=== PATIENT | male | born 1955 | race Caucasian/White ===

== ENCOUNTER 2016-07-12 16:34 | Emergency (ER) | payer OTHER ==
[~2016-07-12] VITALS: Ht 180.3 cm; Wt 102.1 kg
[~2016-07-12 16:34] MED LIST: ACCUNEB SO1.25 MG/1 INH; ACETAMINOPHEN650 M5 PO; ADVAIR 250-501 EACH INH; ADVAIR HFA115 MCG/21 INH; ALEVE220 MG PO; ALLOPURINOL 30300 M1 PO; ATENOLOL 50MG T50 M1 PO; AUGMENTIN 875875 MG PO; BACTRIM DS TAB1 EACH PO; BENADRYL25 MG PO; BUPROPION HCL150 M1 PO; CIPRO500 MG PO; CONSTULOSE10 GM/15 M PO; DIABETA 5MG TABL5 MG PO; DUONEB 2.5-0.5 M3 ML INH; ENDOCET 10-3251 EACH PO; ENOXAPARIN40 MG/0.4 SUBQ; ENULOSE10 GM/15 M PO; IBUPROFEN 400400 M2 PO; KEFLEX500 MG PO; LACTINEX CHEWA1 EACH PO; LACTULOSE20 GM/30 M PO; LEVAQUIN 500 M500 M2 PO; LOVENOX SUBQ; METHADONE HCL 110 M1 PO; METHADONE HCL5 MG PO; METHADONE PO; METHADOSE10 MG/1 ML PO; MIRALAX255 GM PO; NICOTINE PATCH1 EAC2 TD; NICOTINE TRANSD21 M1 TRANSDERM; NORCO 5-325 TA1 EACH PO; PERCOCET 10-321 EACH PO; PREDNISONE 10 M10 MG PO; PREFILLED SUBQ; SULFACETAMIDE OPHTHALMIC; TRAMADOL 50 MG50 MG PO; TRAZODONE 150150 M1 PO; TRAZODONE HCL50 MG PO; ULTRAM 50MG TAB50 MG PO; VALIUM5 MG PO; VENTOLIN HFA 1818 GM INH; XIFAXAN550 M1 PO; [UNRECOGNIZED DRUG - OTHER] SUBQ
== END 2016-07-12 18:22 | disposition home or self-care (01) ==
LOC: ER 16:34
DX: S82.62XA Displaced fracture of lateral malleolus of left fibula, initial encounter for closed fracture (principal); M19.90 Unspecified osteoarthritis, unspecified site; F41.9 Anxiety disorder, unspecified; K74.60 Unspecified cirrhosis of liver; J44.9 Chronic obstructive pulmonary disease, unspecified; I50.9 Heart failure, unspecified; F17.210 Nicotine dependence, cigarettes, uncomplicated; F19.21 Other psychoactive substance dependence, in remission; W23.0XXA Caught, crushed, jammed, or pinched between moving objects, initial encounter; Y93.89 Activity, other specified; Y92.89 Other specified places as the place of occurrence of the external cause; Y99.9 Unspecified external cause status

== ENCOUNTER 2016-11-30 20:21 | Emergency (ER) | payer OTHER ==
[~2016-11-30] VITALS: Ht 180.3 cm; Wt 113.4 kg
[2016-11-30 22:22] LABS: BASOPHILS 0.7 % (0.0-2.0); EOSINOPHILS 2.1 % (0.0-3.0); HEMATOCRIT 41.8 % (42.0-52.0); HEMOGLOBIN 14.5 gm/dL (14.0-18.0); LYMPHOCYTES 36.2 % (24.0-44.0); MCH 35.1 pg (26.0-34.0); MCHC 34.8 g/dL (28.0-37.0); MONOCYTES 7.6 % (1.0-8.0); PLATELET COUNT 80 thou/uL (150-400); POLYS 53.4 % (36.0-66.0); RBC 4.14 mil/uL (4.50-6.00); RDW 14.7 % (10.5-14.5); WBC 5.6 thou/uL (4.0-11.0)
[2016-11-30 22:35] LABS: CALCIUM 8.8 mg/dL (8.5-10.1); CREATININE 0.7 mg/dL (0.7-1.3); POTASSIUM 3.4 mmol/L (3.5-5.1)
[2016-11-30 22:38] LABS: MANUAL DIFF NO
[2016-11-30 22:41] LABS: ALBUMIN 2.9 g/dL (3.4-5.0); DIRECT BILIRUBIN 0.5 mg/dL (<0.1-0.3); TOTAL BILIRUBIN 1.6 mg/dL (<0.1-1.0); TOTAL PROTEIN 7.6 g/dL (6.4-8.2)
[2016-11-30] MEDS ORDERED: ZOFRAN ODT4 MG PO (23:13)
[2016-11-30] MEDS ORDERED: NAPROSYN500 MG PO (23:13)
[2016-11-30 23:52] LABS: PLATELET ESTIMATE DECREASED
== END 2016-11-30 23:53 | disposition home or self-care (01) ==
LOC: ER 20:21
PROVIDERS: Emergency Medicine
DX: R07.9 Chest pain, unspecified (principal); R10.9 Unspecified abdominal pain; F11.20 Opioid dependence, uncomplicated; M10.9 Gout, unspecified; M19.90 Unspecified osteoarthritis, unspecified site; F41.9 Anxiety disorder, unspecified; J44.9 Chronic obstructive pulmonary disease, unspecified; I50.9 Heart failure, unspecified; K74.60 Unspecified cirrhosis of liver; F17.210 Nicotine dependence, cigarettes, uncomplicated; Z86.19 Personal history of other infectious and parasitic diseases

== ENCOUNTER 2017-03-19 15:42 | Emergency (ER) | payer OTHER ==
[~2017-03-19] VITALS: Ht 172.7 cm; Wt 97.5 kg
--- NOTE | ~2017-03-19 | EKG ---
[address] [address] ELECTROCARDIOGRAM REPORT Name: ELANA LONDONWAYNE [id number] Admission: 03/19/17 Attend Phys: Discharge: Date of : 51 Report #: [id number] THIS REPORT FOR: //name// [facility] ED Test Date: 2017-03-19 Test Time: 16:01:43 Pat Name: ELANA LONDON Department: Room: Gender: M Cable Armorer Operator: [id number] : 1955 Requested By: Joe Jimenez Order Number: [id number] MD: Alex Caballero Measurements Intervals [place] Rate: 77 P: -11 MS: 167 QRS: 2 QRSD: 111 T: 32 QT: 468 QTc: 530 Interpretive Statements Sinus rhythm Compared to ECG 11/03/2015 03:36:21 No significant changes Electronically Signed On 03-19-2017 16:52:33 JEWELRY BEARING MAKER by Alex Caballero [email or web address] <ELECTRONICALLY SIGNED> By: Alex Caballero MD 03/19/17 1652 1601 1601 MD JENNIFER Mariee
[~2017-03-19 15:42] MED LIST changes: +NAPROSYN500 MG PO; +ZOFRAN ODT4 MG PO
[2017-03-19 16:37] LABS: HEMATOCRIT 37.4 % (42.0-52.0); HEMOGLOBIN 12.5 gm/dL (14.0-18.0); MCH 34.5 pg (26.0-34.0); MCHC 33.5 g/dL (28.0-37.0); MCV 102.8 fL (80.0-100.0); RBC 3.64 mil/uL (4.50-6.00); RDW 14.9 % (10.5-14.5); WBC 2.3 thou/uL (4.0-11.0)
[2017-03-19 16:45] LABS: ANION GAP 7 mmol/L (7-16); BUN 13 mg/dL (7-18); CALCIUM 8.1 mg/dL (8.5-10.1); CHLORIDE 102 mmol/L (98-107); CO2 27 mmol/L (21-32); CREATININE 0.7 mg/dL (0.7-1.3); GLUCOSE 170 mg/dL (74-106); POTASSIUM 3.4 mmol/L (3.5-5.1); SODIUM 136 mmol/L (136-145)
[2017-03-19 16:53] LABS: TROPONIN-I < 0.04 ng/mL (<0.06)
[2017-03-19] MEDS ORDERED: ZPAK PO (18:19)
== END 2017-03-19 18:32 | disposition home or self-care (01) ==
LOC: ER 15:42
PROVIDERS: Emergency Medicine
DX: R06.02 Shortness of breath (principal); R05 Cough; M79.1 Myalgia; F41.9 Anxiety disorder, unspecified; J44.9 Chronic obstructive pulmonary disease, unspecified; I50.9 Heart failure, unspecified; K74.60 Unspecified cirrhosis of liver; M10.9 Gout, unspecified; F17.210 Nicotine dependence, cigarettes, uncomplicated

== ENCOUNTER 2017-05-09 15:36 | Emergency (ER) | payer OTHER ==
[~2017-05-09] VITALS: Ht 177.8 cm; Wt 113.4 kg
[~2017-05-09 15:36] MED LIST changes: +ZPAK PO
[2017-05-09] MEDS ORDERED: KEFLEX500 M1 PO (16:49)
[2017-05-09] MEDS ORDERED: BACITRACIN28.4 G1 TOP (16:49)
[2017-05-09 16:51] VITALS: BP 107/68
[2017-08-17] MEDS ORDERED: HYDROCODONE-AP1 EAC6 PO (19:19)
[2017-08-17] MEDS ORDERED: MOBIC7.5 MG PO (19:19)
[2017-08-17] MEDS ORDERED: TRAZODONE 150150 M1 PO (19:53)
== END 2017-05-09 16:55 | disposition home or self-care (01) ==
LOC: ER 15:36
DX: T20.09XA Burn of unspecified degree of multiple sites of head, face, and neck, initial encounter (principal); J44.9 Chronic obstructive pulmonary disease, unspecified; I50.9 Heart failure, unspecified; F41.9 Anxiety disorder, unspecified; M19.90 Unspecified osteoarthritis, unspecified site; M10.9 Gout, unspecified; K74.60 Unspecified cirrhosis of liver; F17.210 Nicotine dependence, cigarettes, uncomplicated; X08.8XXA Exposure to other specified smoke, fire and flames, initial encounter; Y93.89 Activity, other specified; Y92.89 Other specified places as the place of occurrence of the external cause; Y99.8 Other external cause status

== ENCOUNTER 2017-06-18 22:12 | Emergency (ER) | payer OTHER ==
[~2017-06-18] VITALS: Ht 177.8 cm; Wt 113.4 kg
[~2017-06-18 22:12] MED LIST changes: +BACITRACIN28.4 G1 TOP; +KEFLEX500 M1 PO
[2017-06-18 23:08] LABS: URINE BILIRUBIN NEGATIVE (Negative); URINE BLOOD NEGATIVE (Negative); URINE CLARITY CLEAR; URINE COLOR YELLOW; URINE GLUCOSE-RANDOM* NEGATIVE (Negative); URINE KETONES NEGATIVE (Negative); URINE LEUKOCYTES-REFLEX NEGATIVE (Negative); URINE NITRITE-REFLEX NEGATIVE (Negative); URINE PROTEIN (DIPSTICK) NEGATIVE (Negative); URINE UROBILINOGEN >= 8.0 E.U./dl (0.2-1.0)
[2017-06-19] MEDS ORDERED: ASPIR 8181 MG PO (00:09)
[2017-06-19] MEDS ORDERED: ATENOLOL 25 MG25 M1 PO (00:09)
[2017-06-19 00:31] LABS: ABSOLUTE NEUTROPHILS 3.4 thou/uL (1.4-8.2); BASOPHILS 0.2 % (0.0-2.0); EOSINOPHILS 1.8 % (0.0-3.0); HEMATOCRIT 39.3 % (42.0-52.0); HEMOGLOBIN 13.4 gm/dL (14.0-18.0); LYMPHOCYTES 20.2 % (24.0-44.0); MCH 35.1 pg (26.0-34.0); MCHC 34.2 g/dL (28.0-37.0); MCV 102.8 fL (80.0-100.0); MONOCYTES 10.4 % (1.0-8.0); PLATELET COUNT 67 thou/uL (150-400); POLYS 67.4 % (36.0-66.0); RBC 3.82 mil/uL (4.50-6.00); RDW 14.4 % (10.5-14.5)
[2017-06-19 00:41] LABS: CALCIUM 8.3 mg/dL (8.5-10.1); CREATININE 0.6 mg/dL (0.7-1.3); POTASSIUM 3.7 mmol/L (3.5-5.1)
[2017-06-19] MEDS ORDERED: LEVAQUIN 750 M750 MG PO (00:52)
[2017-06-19 01:02] VITALS: BP 116/76
[2017-08-17] MEDS ORDERED: HYDROCODONE-AP1 EAC6 PO (19:19)
[2017-08-17] MEDS ORDERED: MOBIC7.5 MG PO (19:19)
[2017-08-17] MEDS ORDERED: TRAZODONE 150150 M1 PO (19:53)
== END 2017-06-19 01:03 | disposition home or self-care (01) ==
LOC: ER 22:12
PROVIDERS: Physician Assistant
DX: J18.9 Pneumonia, unspecified organism (principal); R07.81 Pleurodynia; M10.9 Gout, unspecified; M19.90 Unspecified osteoarthritis, unspecified site; J44.9 Chronic obstructive pulmonary disease, unspecified; I50.9 Heart failure, unspecified; F41.9 Anxiety disorder, unspecified; F17.210 Nicotine dependence, cigarettes, uncomplicated

== ENCOUNTER 2017-07-12 15:59 | Emergency (ER) | payer OTHER ==
[~2017-07-12] VITALS: Ht 180.3 cm; Wt 113.4 kg
[~2017-07-12 15:59] MED LIST changes: +ASPIR 8181 MG PO; +ATENOLOL 25 MG25 M1 PO; +LEVAQUIN 750 M750 MG PO
== END 2017-07-12 16:47 | disposition home or self-care (01) ==
LOC: ER 15:59
DX: R04.0 Epistaxis (principal); M10.9 Gout, unspecified; M19.90 Unspecified osteoarthritis, unspecified site; F41.9 Anxiety disorder, unspecified; J44.9 Chronic obstructive pulmonary disease, unspecified; I50.9 Heart failure, unspecified; F17.210 Nicotine dependence, cigarettes, uncomplicated

== ENCOUNTER 2017-07-16 13:14 | Emergency (ER) | payer OTHER ==
[~2017-07-16] VITALS: Ht 177.8 cm; Wt 113.4 kg
--- NOTE | ~2017-07-16 | EKG ---
[place] [address] [facility] [place] [address] ELECTROCARDIOGRAM REPORT Name: ELANA LONDON [facility] [id number] Admission: 07/16/17 Attend Phys: Discharge: Date of : 51 Report #: [id number] THIS REPORT FOR: //name// [facility] ED Test Date: 2017-07-16 Test Time: 14:28:52 Pat Name: ELANA LONDON Department: Room: Gender: M Payroll Human Resources Assistant: FERNBRIAN : 1955 Requested By: Migue Anderson Order Number: [id number] MD: Klever Rios Measurements Intervals [place] Rate: 66 P: -1 MA: 171 QRS: 15 QRSD: 110 T: 32 QT: 463 QTc: 486 Interpretive Statements Sinus rhythm Borderline prolonged QT interval Compared to ECG 03/19/2017 16:01:43 No significant changes Electronically Signed On 07-16-2017 16:50:12 CDT by Klever Rios [email or web address] <ELECTRONICALLY SIGNED> By: Klever Rios MD, [facility] 07/16/17 1650 1428 1428 Klever Rios MD, FACC /EPI
[2017-07-16 14:02] LABS: URINE BILIRUBIN NEGATIVE (Negative); URINE BLOOD 2+ (Negative); URINE CLARITY CLEAR; URINE COLOR YELLOW; URINE GLUCOSE-RANDOM* NEGATIVE (Negative); URINE KETONES NEGATIVE (Negative); URINE LEUKOCYTES-REFLEX NEGATIVE (Negative); URINE NITRITE-REFLEX NEGATIVE (Negative); URINE PROTEIN (DIPSTICK) NEGATIVE (Negative); URINE SPECIFIC GRAVITY >= 1.030 (1.005-1.035)
[2017-07-16 14:07] LABS: BACTERIA-REFLEX 1-9 Few /HPF (None Seen); CASTS None Seen /LPF (None Seen); CRYSTALS None Seen /LPF (None Seen); SQUAMOUS None Seen /LPF (0-3); URINE RBC 3-10 Few /HPF (0-2); URINE WBC-REFLEX 0-5 Rare /HPF (0-5)
[2017-07-16 15:38] LABS: ABSOLUTE NEUTROPHILS 2.7 thou/uL (1.4-8.2); BASOPHILS 0.9 % (0.0-2.0); EOSINOPHILS 2.3 % (0.0-3.0); HEMATOCRIT 38.8 % (42.0-52.0); HEMOGLOBIN 13.2 gm/dL (14.0-18.0); LYMPHOCYTES 26.8 % (24.0-44.0); MCH 34.6 pg (26.0-34.0); MCHC 34.1 g/dL (28.0-37.0); MCV 101.3 fL (80.0-100.0); MONOCYTES 9.7 % (1.0-8.0); PLATELET COUNT 87 thou/uL (150-400); POLYS 60.3 % (36.0-66.0); RBC 3.82 mil/uL (4.50-6.00); RDW 14.1 % (10.5-14.5); WBC 4.4 thou/uL (4.0-11.0)
[2017-07-16 15:45] LABS: ANION GAP 6 mmol/L (7-16); BUN 13 mg/dL (7-18); CALCIUM 8.7 mg/dL (8.5-10.1); CHLORIDE 103 mmol/L (98-107); CO2 30 mmol/L (21-32); CREATININE 0.7 mg/dL (0.7-1.3); GLUCOSE 76 mg/dL (74-106); POTASSIUM 3.7 mmol/L (3.5-5.1); SODIUM 139 mmol/L (136-145)
[2017-07-16 15:49] LABS: INR 1.2; PROTIME 11.6 Seconds (9.3-11.4)
[2017-07-16 15:59] LABS: LIPASE 127 U/L (73-393); SGOT 60 U/L (15-37); SGPT 63 U/L (30-65); TOTAL PROTEIN 7.9 g/dL (6.4-8.2); TROPONIN-I < 0.04 ng/mL (<0.06)
[2017-07-16] MEDS ORDERED: TRAZODONE HCL50 MG PO (16:55)
[2017-07-16] MEDS ORDERED: KEFLEX500 M1 PO (17:06)
== END 2017-07-16 17:22 | disposition home or self-care (01) ==
LOC: ER 13:14
PROVIDERS: Emergency Medicine
DX: R10.9 Unspecified abdominal pain (principal); R82.71 Bacteriuria; D69.6 Thrombocytopenia, unspecified; R04.0 Epistaxis; M10.9 Gout, unspecified; M19.90 Unspecified osteoarthritis, unspecified site; I50.9 Heart failure, unspecified; J44.9 Chronic obstructive pulmonary disease, unspecified; F17.210 Nicotine dependence, cigarettes, uncomplicated

== ENCOUNTER 2017-08-08 20:13 | Emergency (ER) | payer OTHER ==
[~2017-08-08] VITALS: Ht 177.8 cm; Wt 113.4 kg
[2017-08-08 20:45] LABS: ABSOLUTE NEUTROPHILS 2.6 thou/uL (1.4-8.2); BASOPHILS 0.6 % (0.0-2.0); EOSINOPHILS 2.4 % (0.0-3.0); HEMATOCRIT 35.8 % (42.0-52.0); HEMOGLOBIN 12.4 gm/dL (14.0-18.0); LYMPHOCYTES 28.1 % (24.0-44.0); MCH 34.8 pg (26.0-34.0); MCHC 34.7 g/dL (28.0-37.0); MCV 100.5 fL (80.0-100.0); MONOCYTES 9.5 % (1.0-8.0); PLATELET COUNT 74 thou/uL (150-400); POLYS 59.4 % (36.0-66.0); RBC 3.56 mil/uL (4.50-6.00); WBC 4.4 thou/uL (4.0-11.0)
[2017-08-08 20:55] LABS: CALCIUM 8.7 mg/dL (8.5-10.1); CREATININE 0.8 mg/dL (0.7-1.3); POTASSIUM 3.2 mmol/L (3.5-5.1)
[2017-08-08 21:00] LABS: ALBUMIN 2.9 g/dL (3.4-5.0); DIRECT BILIRUBIN 0.3 mg/dL (<0.1-0.3); TOTAL BILIRUBIN 0.9 mg/dL (<0.1-1.0); TOTAL PROTEIN 7.1 g/dL (6.4-8.2)
[2017-08-08] MEDS ORDERED: IBUPROFEN 800800 MG PO (21:35)
[2017-08-08] MEDS ORDERED: TRAZODONE HCL100 MG PO (21:35)
== END 2017-08-08 21:58 | disposition home or self-care (01) ==
LOC: ER 20:13
PROVIDERS: Emergency Medicine
DX: K85.90 Acute pancreatitis without necrosis or infection, unspecified (principal); K74.60 Unspecified cirrhosis of liver; R60.9 Edema, unspecified; G89.29 Other chronic pain; M10.9 Gout, unspecified; M19.90 Unspecified osteoarthritis, unspecified site; J44.9 Chronic obstructive pulmonary disease, unspecified; I50.9 Heart failure, unspecified; F17.210 Nicotine dependence, cigarettes, uncomplicated

== ENCOUNTER 2017-09-18 23:44 | Emergency (ER) | payer OTHER ==
[~2017-09-18] VITALS: Ht 177.8 cm; Wt 113.4 kg
[~2017-09-18 23:44] MED LIST changes: +HYDROCODONE-AP1 EAC6 PO; +IBUPROFEN 800800 MG PO; +MOBIC7.5 MG PO; +TRAZODONE HCL100 MG PO
[2017-09-19] MEDS ORDERED: NORCO 5-325 TA1 EACH PO (00:34)
== END 2017-09-19 00:55 | disposition home or self-care (01) ==
LOC: ER 23:44
DX: S22.31XA Fracture of one rib, right side, initial encounter for closed fracture (principal); M10.9 Gout, unspecified; M19.90 Unspecified osteoarthritis, unspecified site; J44.9 Chronic obstructive pulmonary disease, unspecified; I50.9 Heart failure, unspecified; F41.9 Anxiety disorder, unspecified; F17.210 Nicotine dependence, cigarettes, uncomplicated; W01.0XXA Fall on same level from slipping, tripping and stumbling without subsequent striking against object, initial encounter; Y93.89 Activity, other specified; Y92.89 Other specified places as the place of occurrence of the external cause; Y99.8 Other external cause status

== ENCOUNTER 2017-09-21 15:29 | Emergency (ER) | payer OTHER ==
[~2017-09-21] VITALS: Ht 177.8 cm; Wt 113.4 kg
--- NOTE | ~2017-09-21 | EKG ---
[place] [address] [facility] [place] [address] ELECTROCARDIOGRAM REPORT Name: ELANA LONDON Room #: [facility] [id number] Admission: 09/21/17 Attend Phys: Discharge: 09/21/17 Date of : 51 Report #: [id number] THIS REPORT FOR: //name// [facility] ED Test Date: 2017-09-21 Test Time: 15:50:16 Pat Name: ELANA LONDON Department: Room: Gender: M Windrower Operator: Stevenson DRAKE : 1955 Requested By: Migue Anderson Order Number: [id number] MD: Bebeto Hamilton Measurements Intervals [place] Rate: 55 P: -13 ND: 172 QRS: 3 QRSD: 112 T: 35 QT: 484 QTc: 463 Interpretive Statements Sinus rhythm Borderline intraventricular conduction delay Baseline wander in lead(s) V1 Compared to ECG 07/16/2017 14:28:52 No significant changes Electronically Signed On 09-22-2017 12:56:35 CDT by Bebeto Hamilton [email or web address] <ELECTRONICALLY SIGNED> By: Bebeto Hamilton MD 09/22/17 1256 1550 1550 Bebeto Hamilton MD /DIEGO
[2017-09-21] MEDS ORDERED: TRAZODONE 150150 M1 PO (15:49)
[2017-09-21 16:05] LABS: URINE BLOOD 2+ (Negative); URINE COLOR YELLOW; URINE GLUCOSE-RANDOM* NEGATIVE (Negative); URINE KETONES NEGATIVE (Negative); URINE LEUKOCYTES-REFLEX NEGATIVE (Negative); URINE NITRITE-REFLEX NEGATIVE (Negative); URINE PROTEIN (DIPSTICK) 1+ (Negative); URINE SPECIFIC GRAVITY 1.025 (1.005-1.035)
[2017-09-21 16:07] LABS: ICTOTEST (BILI CONFIRMATORY) Negative (Negative); URINE BILIRUBIN NEGATIVE (Negative); URINE CLARITY SL HAZY
[2017-09-21 16:16] LABS: BACTERIA-REFLEX 1-9 Few /HPF (None Seen); SQUAMOUS None Seen /LPF (0-3); URINE RBC 3-10 Few /HPF (0-2); URINE WBC-REFLEX 6-15 Few /HPF (0-5)
[2017-09-21 16:18] LABS: CRYSTALS None Seen /LPF (None Seen); WBC CASTS 0-3 Few /LPF (None Seen)
[2017-09-21 17:41] LABS: ABSOLUTE NEUTROPHILS 5.7 thou/uL (1.4-8.2); BASOPHILS 0.6 % (0.0-2.0); EOSINOPHILS 1.5 % (0.0-3.0); HEMATOCRIT 38.9 % (42.0-52.0); HEMOGLOBIN 13.6 gm/dL (14.0-18.0); LYMPHOCYTES 21.6 % (24.0-44.0); MCHC 34.9 g/dL (28.0-37.0); MCV 100.3 fL (80.0-100.0); MONOCYTES 7.7 % (1.0-8.0); PLATELET COUNT 122 thou/uL (150-400); POLYS 68.6 % (36.0-66.0); RBC 3.88 mil/uL (4.50-6.00); RDW 14.9 % (10.5-14.5); WBC 8.3 thou/uL (4.0-11.0)
[2017-09-21 17:50] LABS: ANION GAP 8 mmol/L (7-16); BUN 17 mg/dL (7-18); CALCIUM 9.1 mg/dL (8.5-10.1); CHLORIDE 103 mmol/L (98-107); CO2 29 mmol/L (21-32); GLUCOSE 96 mg/dL (74-106); POTASSIUM 3.3 mmol/L (3.5-5.1); SODIUM 140 mmol/L (136-145)
[2017-09-21 17:59] LABS: ALBUMIN 3.3 g/dL (3.4-5.0); LIPASE 82 U/L (73-393); MAGNESIUM 1.9 mg/dL (1.8-2.4); SGOT 60 U/L (15-37); SGPT 85 U/L (30-65); TOTAL BILIRUBIN 1.2 mg/dL (<0.1-1.0); TROPONIN-I < 0.04 ng/mL (<0.06)
[2017-09-21] MEDS ORDERED: HYDROCODONE-AP1 EAC6 PO (18:02)
[2017-09-21] MEDS ORDERED: ZOFRAN ODT8 MG PO (18:02)
[2017-09-21] MEDS ORDERED: BACTRIM DS TAB1 EACH PO (18:05)
== END 2017-09-21 18:29 | disposition home or self-care (01) ==
LOC: ER 15:29
PROVIDERS: Emergency Medicine
DX: S22.31XA Fracture of one rib, right side, initial encounter for closed fracture (principal); R11.2 Nausea with vomiting, unspecified; R10.9 Unspecified abdominal pain; N39.0 Urinary tract infection, site not specified; J44.9 Chronic obstructive pulmonary disease, unspecified; Z99.81 Dependence on supplemental oxygen; I83.12 Varicose veins of left lower extremity with inflammation; I83.11 Varicose veins of right lower extremity with inflammation; M10.9 Gout, unspecified; M19.90 Unspecified osteoarthritis, unspecified site; F41.9 Anxiety disorder, unspecified; I50.9 Heart failure, unspecified; W19.XXXA Unspecified fall, initial encounter; Y93.89 Activity, other specified; Y92.89 Other specified places as the place of occurrence of the external cause; Y99.8 Other external cause status

== ENCOUNTER 2017-09-22 15:51 | Emergency (ER) | payer OTHER ==
[~2017-09-22] VITALS: Ht 180.3 cm; Wt 95.7 kg
--- NOTE | ~2017-09-22 | EKG ---
[address] [address] ELECTROCARDIOGRAM REPORT Name: ELANA LONDON [facility] [id number] Admission: 09/22/17 Attend Phys: Discharge: 09/22/17 Date of : 51 Report #: [id number] THIS REPORT FOR: //name// [facility] ED Test Date: 2017-09-22 Test Time: 15:55:28 Pat Name: ELANA LONDON Department: Room: Gender: M Mine Motor Engineer: MARIA R : 1955 Requested By: Danyelle Paz Order Number: [id number] MD: Alex Caballero Measurements Intervals [place] Rate: 62 P: -10 [place]: 172 QRS: 19 QRSD: 115 T: 35 QT: 488 QTc: 496 Interpretive Statements Sinus rhythm Nonspecific intraventricular conduction delay Compared to ECG 09/21/2017 15:50:16 No significant changes Electronically Signed On 09-23-2017 8:00:18 CDT by Alex Caballero [email or web address] <ELECTRONICALLY SIGNED> By: Alex Caballero MD 09/23/17 0800 1555 155 Alex Caballero MD /DIEGO
[~2017-09-22 15:51] MED LIST changes: +ZOFRAN ODT8 MG PO
[2017-09-22 17:55] LABS: ABSOLUTE NEUTROPHILS 6.3 thou/uL (1.4-8.2); BASOPHILS 0.2 % (0.0-2.0); EOSINOPHILS 0.5 % (0.0-3.0); HEMATOCRIT 37.6 % (42.0-52.0); HEMOGLOBIN 13.1 gm/dL (14.0-18.0); LYMPHOCYTES 23.7 % (24.0-44.0); MCHC 34.8 g/dL (28.0-37.0); MCV 100.5 fL (80.0-100.0); MONOCYTES 9.4 % (1.0-8.0); PLATELET COUNT 115 thou/uL (150-400); POLYS 66.2 % (36.0-66.0); RBC 3.74 mil/uL (4.50-6.00); RDW 15.2 % (10.5-14.5); WBC 9.6 thou/uL (4.0-11.0)
[2017-09-22 18:06] LABS: POTASSIUM 2.9 mmol/L (3.5-5.1)
== END 2017-09-22 21:10 | disposition home or self-care (01) ==
LOC: ER 15:51
PROVIDERS: Emergency Medicine
DX: R07.9 Chest pain, unspecified (principal); E87.6 Hypokalemia; R61 Generalized hyperhidrosis; R06.2 Wheezing; J44.9 Chronic obstructive pulmonary disease, unspecified; M19.90 Unspecified osteoarthritis, unspecified site; F41.9 Anxiety disorder, unspecified; I50.9 Heart failure, unspecified; F17.210 Nicotine dependence, cigarettes, uncomplicated

== ENCOUNTER 2017-10-28 19:29 | Emergency (ER) | payer OTHER ==
[~2017-10-28] VITALS: Ht 172.7 cm; Wt 113.4 kg
[2017-10-28 20:02] LABS: URINE BILIRUBIN NEGATIVE (Negative); URINE BLOOD NEGATIVE (Negative); URINE CLARITY CLEAR; URINE COLOR YELLOW; URINE GLUCOSE-RANDOM* NEGATIVE (Negative); URINE KETONES NEGATIVE (Negative); URINE LEUKOCYTES-REFLEX NEGATIVE (Negative); URINE NITRITE-REFLEX NEGATIVE (Negative); URINE PROTEIN (DIPSTICK) NEGATIVE (Negative); URINE SPECIFIC GRAVITY >= 1.030 (1.005-1.035); URINE UROBILINOGEN 0.2 E.U./dl (0.2-1.0)
[2017-10-28] MEDS ORDERED: METHADONE10 MG/1 M1 PO (20:21)
[2017-10-28] MEDS ORDERED: TRAZODONE 150150 M1 PO (20:57)
== END 2017-10-28 21:10 | disposition home or self-care (01) ==
LOC: ER 19:29
PROVIDERS: Nurse Practitioner Family
DX: S80.11XA Contusion of right lower leg, initial encounter (principal); S39.012A Strain of muscle, fascia and tendon of lower back, initial encounter; M25.551 Pain in right hip; E66.01 Morbid (severe) obesity due to excess calories; F17.210 Nicotine dependence, cigarettes, uncomplicated; M10.9 Gout, unspecified; M19.90 Unspecified osteoarthritis, unspecified site; F41.9 Anxiety disorder, unspecified; J44.9 Chronic obstructive pulmonary disease, unspecified; I50.9 Heart failure, unspecified; K74.60 Unspecified cirrhosis of liver; W10.9XXA Fall (on) (from) unspecified stairs and steps, initial encounter; Y93.89 Activity, other specified; Y92.89 Other specified places as the place of occurrence of the external cause; Y99.8 Other external cause status

== ENCOUNTER 2017-11-17 00:08 | Emergency (ER) | payer OTHER ==
[~2017-11-17] VITALS: Ht 177.8 cm; Wt 94.8 kg
[~2017-11-17 00:08] MED LIST changes: +METHADONE10 MG/1 M1 PO
[2017-11-17 02:48] LABS: CALCIUM 8.6 mg/dL (8.5-10.1); CREATININE 0.9 mg/dL (0.7-1.3); POTASSIUM 3.7 mmol/L (3.5-5.1)
[2017-11-17 02:54] LABS: DIRECT BILIRUBIN 0.3 mg/dL (<0.1-0.3); TOTAL BILIRUBIN 0.8 mg/dL (<0.1-1.0); TOTAL PROTEIN 7.5 g/dL (6.4-8.2)
[2017-11-17 03:16] LABS: ABSOLUTE NEUTROPHILS 4.9 thou/uL (1.4-8.2); BASOPHILS 0.9 % (0.0-2.0); EOSINOPHILS 2.1 % (0.0-3.0); HEMATOCRIT 37.6 % (42.0-52.0); LYMPHOCYTES 20.3 % (24.0-44.0); MCH 34.9 pg (26.0-34.0); MCHC 34.6 g/dL (28.0-37.0); MCV 100.9 fL (80.0-100.0); MONOCYTES 7.6 % (1.0-8.0); PLATELET COUNT 73 thou/uL (150-400); POLYS 69.1 % (36.0-66.0); RBC 3.73 mil/uL (4.50-6.00); RDW 14.6 % (10.5-14.5); WBC 7.1 thou/uL (4.0-11.0)
== END 2017-11-17 04:34 | disposition home or self-care (01) ==
LOC: ER 00:08
PROVIDERS: Emergency Medicine
DX: R10.30 Lower abdominal pain, unspecified (principal); R11.2 Nausea with vomiting, unspecified; M10.9 Gout, unspecified; J44.9 Chronic obstructive pulmonary disease, unspecified; I50.9 Heart failure, unspecified; F41.9 Anxiety disorder, unspecified; M19.90 Unspecified osteoarthritis, unspecified site; F17.210 Nicotine dependence, cigarettes, uncomplicated

== ENCOUNTER 2018-01-15 21:35 | Emergency (ER) | payer OTHER ==
[~2018-01-15] VITALS: Ht 180.3 cm; Wt 81.7 kg
--- NOTE | ~2018-01-15 | EKG ---
[address] [address] ELECTROCARDIOGRAM REPORT Name: ELANA LONDONWAYNE [facility] [id number] Admission: 01/15/18 Attend Phys: Discharge: 01/16/18 Date of : 51 Report #: [id number] THIS REPORT FOR: //name// [facility] ED Test Date: 2018-01-15 Test Time: 22:30:09 Pat Name: ELANA LONDON Department: Room: Gender: M Casting Finisher: AUNG : 1955 Requested By: Karma Carrillo Order Number: [id number] MD: Klever Rios Measurements Intervals [place] Rate: 85 P: 17 [place]: 182 QRS: -1 QRSD: 112 T: 26 QT: 442 QTc: 526 Interpretive Statements Sinus rhythm Nonspecific ST and T wave abnormality Prolonged QT interval Compared to ECG 09/22/2017 15:55:28 Prolonged QT interval now present nonspecific change in the ST and T-wave segments Electronically Signed On 01-16-2018 8:11:22 CDT by Klever Rios [email or web address] <ELECTRONICALLY SIGNED> By: Klever Rios MD, [facility] 01/16/18 0811 29 29 Klever Rios MD, [facility] /EPI
[2018-01-15] MEDS ORDERED: XIFAXAN550 M1 PO (21:59)
[2018-01-15] MEDS ORDERED: LASIX 40 MG TAB40 M2 PO (22:00)
[2018-01-15] MEDS ORDERED: ALDACTONE100 MG PO (22:00)
[2018-01-15] MEDS ORDERED: OMEPRAZOLE40 MG PO (22:00)
[2018-01-15] MEDS ORDERED: CONSTULOSE10 GM/152 PO (22:02)
[2018-01-15 22:37] LABS: ANION GAP 7 mmol/L (7-16); BUN 17 mg/dL (7-18); CALCIUM 9.1 mg/dL (8.5-10.1); CHLORIDE 100 mmol/L (98-107); CO2 30 mmol/L (21-32); CREATININE 1.1 mg/dL (0.7-1.3); GLUCOSE 150 mg/dL (74-106); POTASSIUM 3.4 mmol/L (3.5-5.1); SODIUM 137 mmol/L (136-145)
[2018-01-15 22:46] LABS: ABSOLUTE NEUTROPHILS 4.7 thou/uL (1.4-8.2); BASOPHILS 0.7 % (0.0-2.0); EOSINOPHILS 1.2 % (0.0-3.0); HEMATOCRIT 42.1 % (42.0-52.0); LYMPHOCYTES 18.6 % (24.0-44.0); MCH 35.9 pg (26.0-34.0); MCHC 35.6 g/dL (28.0-37.0); MCV 100.9 fL (80.0-100.0); MONOCYTES 6.6 % (1.0-8.0); PLATELET COUNT 89 thou/uL (150-400); POLYS 72.9 % (36.0-66.0); RBC 4.18 mil/uL (4.50-6.00); WBC 6.4 thou/uL (4.0-11.0)
[2018-01-15 22:48] LABS: LIPASE 219 U/L (73-393); SGOT 41 U/L (15-37); SGPT 34 U/L (30-65); TOTAL BILIRUBIN 1.1 mg/dL (<0.1-1.0); TOTAL PROTEIN 7.9 g/dL (6.4-8.2); TROPONIN-I <0.06 ng/mL (<0.06)
== END 2018-01-16 01:15 | disposition home or self-care (01) ==
LOC: ER 21:35
PROVIDERS: Student in an Organized Health Care Education/Training Program
DX: R53.83 Other fatigue (principal); R11.0 Nausea; J44.9 Chronic obstructive pulmonary disease, unspecified; I50.9 Heart failure, unspecified; K74.60 Unspecified cirrhosis of liver; B19.20 Unspecified viral hepatitis C without hepatic coma; M19.90 Unspecified osteoarthritis, unspecified site; M10.9 Gout, unspecified; F41.9 Anxiety disorder, unspecified; F17.210 Nicotine dependence, cigarettes, uncomplicated; Z99.81 Dependence on supplemental oxygen

== ENCOUNTER 2018-02-03 16:15 | Emergency (ER) | payer OTHER ==
[~2018-02-03] VITALS: Ht 172.7 cm; Wt 113.4 kg
--- NOTE | ~2018-02-03 | EKG ---
[address] [address] ELECTROCARDIOGRAM REPORT Name: ELANA LONDON [facility] [id number] Admission: 02/03/18 Attend Phys: Discharge: 02/03/18 Date of : 51 Report #: [id number] THIS REPORT FOR: //name// [facility] ED Test Date: 2018-02-03 Test Time: 17:25:37 Pat Name: ELANA LONDON Department: Room: Gender: M Staffing Executive: AUNG : 1955 Requested By: Karma Carrillo Order Number: [id number] MD: Klever Rios Measurements Intervals [place] Rate: 73 P: 32 [place]: 183 QRS: 1 QRSD: 113 T: 25 QT: 474 QTc: 523 Interpretive Statements Sinus rhythm Borderline intraventricular conduction delay Prolonged QT interval Compared to ECG 01/15/2018 22:30:09 No significant change was found Electronically Signed On 02-04-2018 8:02:21 CDT by Klever Riso [email or web address] <ELECTRONICALLY SIGNED> By: Klever Rios MD, [facility] 02/04/18 0802 24 24 Klever Rios MD, FAC /EPI
[~2018-02-03 16:15] MED LIST changes: +ALDACTONE100 MG PO; +CONSTULOSE10 GM/152 PO; +LASIX 40 MG TAB40 M2 PO; +OMEPRAZOLE40 MG PO
[2018-02-03 17:25] LABS: ABSOLUTE NEUTROPHILS 3.3 thou/uL (1.4-8.2); BASOPHILS 0.6 % (0.0-2.0); EOSINOPHILS 2.2 % (0.0-3.0); HEMATOCRIT 41.2 % (42.0-52.0); HEMOGLOBIN 14.2 gm/dL (14.0-18.0); LYMPHOCYTES 21.8 % (24.0-44.0); MCH 35.2 pg (26.0-34.0); MCHC 34.6 g/dL (28.0-37.0); MCV 101.7 fL (80.0-100.0); MONOCYTES 9.4 % (1.0-8.0); RBC 4.05 mil/uL (4.50-6.00); RDW 14.7 % (10.5-14.5)
[2018-02-03 17:27] LABS: PLATELET COUNT 75 thou/uL (150-400)
[2018-02-03 17:33] LABS: CALCIUM 8.8 mg/dL (8.5-10.1); POTASSIUM 3.7 mmol/L (3.5-5.1)
[2018-02-03 17:39] LABS: ALBUMIN 2.8 g/dL (3.4-5.0); TOTAL BILIRUBIN 1.2 mg/dL (<0.1-1.0); TOTAL PROTEIN 7.7 g/dL (6.4-8.2)
[2018-02-03 18:21] LABS: URINE BLOOD NEGATIVE (Negative); URINE CLARITY CLEAR; URINE COLOR YELLOW; URINE GLUCOSE-RANDOM* TRACE (Negative); URINE KETONES TRACE (Negative); URINE LEUKOCYTES-REFLEX NEGATIVE (Negative); URINE NITRITE-REFLEX NEGATIVE (Negative); URINE PROTEIN (DIPSTICK) NEGATIVE (Negative); URINE SPECIFIC GRAVITY >= 1.030 (1.005-1.035)
[2018-02-03 18:26] LABS: ICTOTEST (BILI CONFIRMATORY) Negative (Negative); URINE BILIRUBIN NEGATIVE (Negative)
[2018-02-03 18:51] LABS: AMP/METHAMP Negative (Negative); BARBITURATES Negative (Negative); BENZODIAZEPINES Negative (Negative); COCAINE Negative (Negative); METHADONE POSITIVE (Negative); OPIATES Negative (Negative); PCP Negative (Negative)
== END 2018-02-03 19:13 | disposition home or self-care (01) ==
LOC: ER 16:15
PROVIDERS: Student in an Organized Health Care Education/Training Program
DX: K72.90 Hepatic failure, unspecified without coma (principal); M10.9 Gout, unspecified; M19.90 Unspecified osteoarthritis, unspecified site; B19.20 Unspecified viral hepatitis C without hepatic coma; J44.9 Chronic obstructive pulmonary disease, unspecified; I50.9 Heart failure, unspecified; K74.60 Unspecified cirrhosis of liver; F17.210 Nicotine dependence, cigarettes, uncomplicated; Z79.899 Other long term (current) drug therapy

== ENCOUNTER 2018-02-10 10:55 | Inpatient (IN) | payer OTHER ==
[~2018-02-10] VITALS: Ht 172.7 cm; Wt 111.1 kg
[2018-02-10 10:55] VITALS: BP 121/80
[2018-02-10 11:31] LABS: ABSOLUTE NEUTROPHILS 3.3 thou/uL (1.4-8.2); BASOPHILS 0.7 % (0.0-2.0); EOSINOPHILS 2.1 % (0.0-3.0); HEMATOCRIT 41.5 % (42.0-52.0); HEMOGLOBIN 14.3 gm/dL (14.0-18.0); LYMPHOCYTES 26.5 % (24.0-44.0); MCH 34.6 pg (26.0-34.0); MCHC 34.6 g/dL (28.0-37.0); MONOCYTES 10.5 % (1.0-8.0); POLYS 60.2 % (36.0-66.0); RBC 4.15 mil/uL (4.50-6.00); RDW 14.7 % (10.5-14.5); WBC 5.4 thou/uL (4.0-11.0)
[2018-02-10 11:40] LABS: URINE BILIRUBIN NEGATIVE (Negative); URINE BLOOD NEGATIVE (Negative); URINE CLARITY CLEAR; URINE COLOR YELLOW; URINE GLUCOSE-RANDOM* NEGATIVE (Negative); URINE KETONES NEGATIVE (Negative); URINE LEUKOCYTES-REFLEX NEGATIVE (Negative); URINE NITRITE-REFLEX NEGATIVE (Negative); URINE PROTEIN (DIPSTICK) NEGATIVE (Negative); URINE SPECIFIC GRAVITY 1.015 (1.005-1.035); URINE UROBILINOGEN >= 8.0 E.U./dl (0.2-1.0)
[2018-02-10 11:42] LABS: CALCIUM 9.1 mg/dL (8.5-10.1); CREATININE 0.9 mg/dL (0.7-1.3); POTASSIUM 3.8 mmol/L (3.5-5.1)
[2018-02-10 11:45] LABS: PLATELET COUNT 84 thou/uL (150-400); PLATELET ESTIMATE SLIGHTLY DECREASED
[2018-02-10 11:47] LABS: ALBUMIN 2.9 g/dL (3.4-5.0); TOTAL BILIRUBIN 1.2 mg/dL (<0.1-1.0)
[2018-02-10] MEDS ORDERED: ATENOLOL 100MG100 MG PO (13:34)
[2018-02-10 16:16] VITALS: BP 114/57
[2018-02-10 17:09] VITALS: BP 105/72
[2018-02-10 20:16] VITALS: BP 102/64
[2018-02-11 00:25] VITALS: BP 103/71
[2018-02-11 04:22] LABS: ABSOLUTE NEUTROPHILS 2.9 thou/uL (1.4-8.2); BASOPHILS 0.7 % (0.0-2.0); EOSINOPHILS 1.8 % (0.0-3.0); HEMATOCRIT 41.8 % (42.0-52.0); HEMOGLOBIN 14.1 gm/dL (14.0-18.0); LYMPHOCYTES 29.5 % (24.0-44.0); MCH 34.3 pg (26.0-34.0); MCHC 33.8 g/dL (28.0-37.0); MCV 101.6 fL (80.0-100.0); MONOCYTES 9.4 % (1.0-8.0); PLATELET COUNT 87 thou/uL (150-400); POLYS 58.6 % (36.0-66.0); RBC 4.11 mil/uL (4.50-6.00); RDW 14.6 % (10.5-14.5)
[2018-02-11 04:51] LABS: INR 1.2; PROTIME 12.1 Seconds (9.3-11.4)
[2018-02-11 04:55] LABS: ALBUMIN 2.6 g/dL (3.4-5.0); CALCIUM 8.7 mg/dL (8.5-10.1); CREATININE 0.9 mg/dL (0.7-1.3); MAGNESIUM 1.9 mg/dL (1.8-2.4); POTASSIUM 3.7 mmol/L (3.5-5.1); TOTAL BILIRUBIN 1.2 mg/dL (<0.1-1.0); TOTAL PROTEIN 7.6 g/dL (6.4-8.2)
[2018-02-11 05:12] VITALS: BP 109/69
[2018-02-11 07:23] VITALS: BP 92/72
[2018-02-11 11:25] VITALS: BP 121/75
[2018-02-11] MEDS ORDERED: SSD CREAM 1% 5050 GM TOP (15:05)
[2018-02-11 15:35] VITALS: BP 130/75
[2018-02-11 19:13] VITALS: BP 109/70
[2018-02-12 03:46] VITALS: BP 90/64
[2018-02-12 05:37] LABS: CALCIUM 8.3 mg/dL (8.5-10.1); CREATININE 0.8 mg/dL (0.7-1.3); POTASSIUM 3.9 mmol/L (3.5-5.1)
[2018-02-12 07:35] VITALS: BP 121/66
[2018-02-12 09:55] LABS: ABSOLUTE NEUTROPHILS 3.8 thou/uL (1.4-8.2); BASOPHILS 0.5 % (0.0-2.0); EOSINOPHILS 2.7 % (0.0-3.0); HEMATOCRIT 43.3 % (42.0-52.0); HEMOGLOBIN 15.2 gm/dL (14.0-18.0); LYMPHOCYTES 23.5 % (24.0-44.0); MCH 35.5 pg (26.0-34.0); MCHC 35.1 g/dL (28.0-37.0); MCV 101.1 fL (80.0-100.0); MONOCYTES 8.8 % (1.0-8.0); PLATELET COUNT 109 thou/uL (150-400); POLYS 64.5 % (36.0-66.0); RBC 4.28 mil/uL (4.50-6.00); RDW 14.9 % (10.5-14.5); WBC 5.8 thou/uL (4.0-11.0)
[2018-02-12 12:30] VITALS: BP 111/70
[2018-02-12 16:40] VITALS: BP 114/72
[2018-02-12 20:05] VITALS: BP 141/76
[2018-02-13 04:30] VITALS: BP 139/79
[2018-02-13 06:30] LABS: ABSOLUTE NEUTROPHILS 3.2 thou/uL (1.4-8.2); BASOPHILS 0.8 % (0.0-2.0); EOSINOPHILS 2.4 % (0.0-3.0); HEMATOCRIT 40.6 % (42.0-52.0); HEMOGLOBIN 14.1 gm/dL (14.0-18.0); LYMPHOCYTES 23.6 % (24.0-44.0); MCHC 34.8 g/dL (28.0-37.0); MCV 100.7 fL (80.0-100.0); MONOCYTES 9.3 % (1.0-8.0); POLYS 63.9 % (36.0-66.0); RBC 4.03 mil/uL (4.50-6.00); RDW 14.9 % (10.5-14.5)
[2018-02-13 06:38] LABS: CREATININE 0.9 mg/dL (0.7-1.3); POTASSIUM 4.1 mmol/L (3.5-5.1)
[2018-02-13 07:57] LABS: PLATELET COUNT 74 thou/uL (150-400)
[2018-02-13 07:58] VITALS: BP 117/75
[2018-02-13 12:53] VITALS: BP 124/80
[2018-02-13] MEDS ORDERED: CONSTULOSE10 GM/152 PO (13:33)
[2018-02-13 15:48] VITALS: BP 124/80
[2018-02-13 16:50] VITALS: BP 124/80
== END 2018-02-13 17:44 | disposition home health service (06) | DRG 441 ==
LOC: ER 10:55 → 3W 12:39 → EROBS 12:39 → 3W 16:18 → ENTRNSPT 02-13 17:30 → EDTRNSPT 02-13 17:33 → 3W 02-13 17:44
PROVIDERS: Family Medicine; Hospitalist; Nurse Practitioner; Nurse Practitioner Family
DX: K72.90 Hepatic failure, unspecified without coma (principal); E43 Unspecified severe protein-calorie malnutrition; R18.8 Other ascites; J96.10 Chronic respiratory failure, unspecified whether with hypoxia or hypercapnia; M10.9 Gout, unspecified; M19.90 Unspecified osteoarthritis, unspecified site; F41.9 Anxiety disorder, unspecified; K74.60 Unspecified cirrhosis of liver; J44.9 Chronic obstructive pulmonary disease, unspecified; I50.9 Heart failure, unspecified; F17.210 Nicotine dependence, cigarettes, uncomplicated; T23.012A Burn of unspecified degree of left thumb (nail), initial encounter; G89.4 Chronic pain syndrome; Z96.649 Presence of unspecified artificial hip joint; Z96.659 Presence of unspecified artificial knee joint; R74.0 Nonspecific elevation of levels of transaminase and lactic acid dehydrogenase [LDH]; B19.20 Unspecified viral hepatitis C without hepatic coma; E88.09 Other disorders of plasma-protein metabolism, not elsewhere classified; D69.6 Thrombocytopenia, unspecified; Z68.37 Body mass index [BMI] 37.0-37.9, adult; Z79.891 Long term (current) use of opiate analgesic; Z71.6 Tobacco abuse counseling; Z79.82 Long term (current) use of aspirin; Z79.899 Other long term (current) drug therapy
CPT/HCPCS: 10879

== ENCOUNTER 2018-02-23 05:36 | Inpatient (IN) | payer OTHER ==
[~2018-02-23] VITALS: Ht 182.9 cm; Wt 104.3 kg
[~2018-02-23 05:36] MED LIST changes: +ATENOLOL 100MG100 MG PO; -METHADONE10 MG/1 M1 PO; +SSD CREAM 1% 5050 GM TOP
[2018-02-23 05:37] VITALS: BP 103/58
[2018-02-23 06:28] LABS: ABSOLUTE NEUTROPHILS 2.5 thou/uL (1.4-8.2); BASOPHILS 1.4 % (0.0-2.0); EOSINOPHILS 2.8 % (0.0-3.0); HEMATOCRIT 41.7 % (42.0-52.0); HEMOGLOBIN 14.5 gm/dL (14.0-18.0); LYMPHOCYTES 30.6 % (24.0-44.0); MCH 35.1 pg (26.0-34.0); MCHC 34.8 g/dL (28.0-37.0); MCV 100.8 fL (80.0-100.0); MONOCYTES 10.3 % (1.0-8.0); PLATELET COUNT 85 thou/uL (150-400); POLYS 54.9 % (36.0-66.0); RBC 4.13 mil/uL (4.50-6.00); RDW 14.8 % (10.5-14.5); WBC 4.5 thou/uL (4.0-11.0)
[2018-02-23 06:29] LABS: CALCIUM 8.7 mg/dL (8.5-10.1); POTASSIUM 3.7 mmol/L (3.5-5.1)
[2018-02-23 06:35] LABS: ALBUMIN 2.8 g/dL (3.4-5.0); TOTAL BILIRUBIN 1.3 mg/dL (<0.1-1.0); TOTAL PROTEIN 7.8 g/dL (6.4-8.2)
[2018-02-23 07:47] LABS: URINE BILIRUBIN NEGATIVE (Negative); URINE BLOOD NEGATIVE (Negative); URINE CLARITY CLEAR; URINE GLUCOSE-RANDOM* NEGATIVE (Negative); URINE KETONES NEGATIVE (Negative); URINE LEUKOCYTES-REFLEX NEGATIVE (Negative); URINE NITRITE-REFLEX NEGATIVE (Negative); URINE PROTEIN (DIPSTICK) NEGATIVE (Negative); URINE SPECIFIC GRAVITY >= 1.030 (1.005-1.035)
[2018-02-23 07:53] LABS: URINE COLOR AMBER
[2018-02-23 10:27] VITALS: BP 100/62
[2018-02-23 11:25] VITALS: BP 115/64
[2018-02-23 11:27] LABS: % SATURATION 26 % (20-39); IRON 82 ug/dL (65-175); TIBC 312 ug/dL (250-450)
[2018-02-23 11:49] VITALS: BP 115/73
[2018-02-23 15:02] VITALS: BP 106/73
[2018-02-23 19:13] VITALS: BP 103/69
[2018-02-24 04:10] VITALS: BP 103/69
[2018-02-24 07:58] VITALS: BP 109/70
[2018-02-24 14:08] LABS: HEP B SURFACE Ab(ANTI-HBS Reactive (()); HEPATITIS B SURFACE AG Negative (Negative)
[2018-02-24 14:45] VITALS: BP 103/65
[2018-02-24 19:21] VITALS: BP 101/74
[2018-02-25 02:54] VITALS: BP 124/68
[2018-02-25 05:46] LABS: CALCIUM 8.7 mg/dL (8.5-10.1); CREATININE 0.8 mg/dL (0.7-1.3)
[2018-02-25 05:47] LABS: POTASSIUM 4.1 mmol/L (3.5-5.1)
[2018-02-25 07:58] VITALS: BP 109/67
[2018-02-25 08:24] VITALS: BP 109/67
[2018-02-25 13:12] LABS: MITOCHONDRIAL ANTIBODY 11.5 Units (0.0-20.0)
[2018-02-25] MEDS ORDERED: METHADONE10 MG/1 M1 PO (15:52)
== END 2018-02-25 17:17 | DRG 441 ==
LOC: ER 05:36 → 4W 08:34 → EROBS 08:34 → 4W 11:26
PROVIDERS: Emergency Medicine; Internal Medicine; Internal Medicine Gastroenterology
DX: K72.90 Hepatic failure, unspecified without coma (principal); E43 Unspecified severe protein-calorie malnutrition; K76.6 Portal hypertension; R18.8 Other ascites; F11.20 Opioid dependence, uncomplicated; J44.9 Chronic obstructive pulmonary disease, unspecified; B19.20 Unspecified viral hepatitis C without hepatic coma; F17.210 Nicotine dependence, cigarettes, uncomplicated; G89.4 Chronic pain syndrome; D64.9 Anemia, unspecified; Z96.641 Presence of right artificial hip joint; Z96.651 Presence of right artificial knee joint; I50.9 Heart failure, unspecified; K74.60 Unspecified cirrhosis of liver; M10.9 Gout, unspecified; Z68.31 Body mass index [BMI] 31.0-31.9, adult; Z79.899 Other long term (current) drug therapy; Z79.82 Long term (current) use of aspirin; Z91.14 Patient's other noncompliance with medication regimen
CPT/HCPCS: 10045

== ENCOUNTER 2018-02-25 14:18 | Inpatient (IN) | payer OTHER ==
[~2018-02-25] VITALS: Ht 172.7 cm; Wt 113.4 kg
--- NOTE | ~2018-02-25 | H ---
[facility] [address] HISTORY AND PHYSICAL Name: ELANA LONDON Room #: 511-P ADM IN M.R.#: [id number] Admission: 02/25/18 Attend Phys: Tyler Duckworth MD Discharge: Date of : 51 Report #: [id number] THIS REPORT FOR: //name// CC: Tyler Banerjee DATE OF SERVICE: 02/25/2018 HISTORY AND PHYSICAL/POSTADMISSION PHYSICIAN EVALUATION HISTORY OF PRESENT ILLNESS: The patient is a 62-year-old male, previously known to us who was readmitted to [facility] with acute mental status changes secondary to liver disease and cirrhosis. There is indication that he was noncompliant with liver medications at home. He also takes methadone, which was initially held due to his confusion and was resumed subsequently. He was evaluated by Gastroenterology with no new recommendations. He is being followed regarding his ammonia level, which was up to 171, last level dropped down to 91. He is on lactulose and Xifaxan. He does have hepatitis C, untreated, and cirrhosis of liver is of questionable etiology. Sonogram was negative for ascites. He has had problems with confusion with decreased mental status and has iodnukiw-ul-lramie comprehensive deficits and noted hepatic encephalopathy. He has been admitted for acute in-hospital inpatient rehabilitation. PAST MEDICAL HISTORY: Includes cirrhosis, hepatitis C virus with ascites in the past, hepatic encephalopathy, and portal hypertension. PAST SURGICAL HISTORY: Includes total hip replacement, total knee replacement, shoulder surgeries, elbow surgery. MEDICATIONS: Please see the full medication listing, this includes vitamins, herbals, and supplements. ALLERGIES: No known drug allergies. HABITS: Noted to have a history of cigarette usage. No history of alcohol use. SOCIAL HISTORY: He lives in a motel with his . He utilized a single point cane. She provided instrumental ADLs and assist as needed. He also has the whole person who comes in and assists 5 days per week. REVIEW OF SYSTEMS: He did not offer any current complaints of chest pain, shortness of breath or abdominal discomfort. He complains of some overall generalized weakness. He notes he has had some intermittent distal lower extremity pain complaints that come and go and has some chronic venous stasis changes. [address] [address] HISTORY AND PHYSICAL Name: ELANA LONDON Room #: 511-P [facility] IN ..#: [id number] Admission: 02/25/18 Attend Phys: Tyler Duckworth MD Discharge: Date of : 51 Report #: [id number] PHYSICAL EXAMINATION: GENERAL: He is a 62-year-old male, in no obvious distress. He is alert. Definite latency to his response. He tends to defer to his . He can follow basic 1 step commands. He has decreased insight into his deficits. VITAL SIGNS: Last recorded temperature 98, pulse 77, respirations 20, blood pressure is 99/53. HEENT: Facies appeared symmetric. CHEST: Sounded clear to auscultation. CARDIOVASCULAR: Regular rate and rhythm. ABDOMEN: Obese, bowel sounds positive, nontender. GENITOURINARY AND RECTAL: Deferred. NEUROMUSCULOSKELETAL: He has functional range of motion of the upper extremities, strength is a grade 4- to 3+/5. Lower extremities, he has venous stasis changes of bilateral distal lower extremity with some thickening of the skin. He does have some decreased sensation on mild to light touch. No distal edema. Functionally, he has been transferring with min assist and has ambulated a short distance min assist with a front-wheeled walker. He does have forgetfulness and confusion. Last ammonia was 91 as noted above. ASSESSMENT: A 62-year-old male with the following problem list: 1. Hepatic encephalopathy. 2. Cirrhosis. 3. Chronic liver failure. 4. Chronic pain syndrome. 5. Tobacco abuse. 6. Medical noncompliance. 7. Anemia. 8. Hepatitis C. PLAN: The patient has been admitted for acute in-hospital inpatient rehabilitation. From a postadmission physician evaluation perspective, there are no relevant changes since the preadmission screening. Please see the above review of prior and current medical and functional conditions and comorbidities. Please see the patient's previous and current functional status. As far as risk of complications, the patient has multiple medical comorbidities as noted above. The initial plan of care involves the interdisciplinary acute inpatient rehabilitation program with the goal of maximizing the patient's functional independence, so that he can hopefully return back to his prior living situation. Measurable functional goals would be for the patient to become modified independent with transfers, mobility, ADLs, strength, endurance as well as overall cognition, so he can return back to the home setting. Prognosis is reasonably good with estimated length of stay probably at least 7-14 days depending progress. Potential barriers would include his multiple medical comorbidities and decreased functional status. The patient meets diagnostic criteria for an acute in-hospital inpatient [facility] [address] [place] [address] HISTORY AND PHYSICAL Name: ELANA LONDON Room #: 511-P ADM IN M.R.#: [id number] Admission: 02/25/18 Attend Phys: Tyler Duckworth MD Discharge: Date of : 53 Report #: [id number] rehabilitation stay. He meets the medical necessity criteria and we will have the benefits consultant physicians continue to follow. He does have good tolerance for therapies and has appropriate discharge goals back to the home setting. Again, from a postadmission physician evaluation perspective, there are no relevant changes since the preadmission screening. <ELECTRONICALLY SIGNED> By: Tyler Duckworth MD 03/05/18 1046 0810 0834 Tyler Duckworth MD /nt
--- NOTE | ~2018-02-25 | PLAN ---
[facility] [address] REHAB UNIT PLAN OF CARE Name: ELANA LONDON Room #: 511-P ADM IN M.R.#: [id number] Admission: 02/25/18 Attend Phys: Tyler Duckworth MD Discharge: Date of : 53 Report #: [id number] THIS REPORT FOR: //name// CC: Tyler Banerjee DATE OF SERVICE: 02/28/2018 PROGRESS NOTE/OVERALL PLAN OF CARE SUBJECTIVE: The patient is seen back today in followup. He is in no distress. Last recorded temperature 98.6, pulse 73, respirations 18, blood pressure 114/74. He transfers with min assist, gait min assist 100 feet front-wheeled walker. Lower extremity dressing is min assist. He has moderate comprehensive deficits. Gastroenterology is involved. He is on lactulose, Xifaxan, and Aldactone. His last ammonia level was 120. He also is on methadone, but he has been on that for years. ASSESSMENT: 1. Hepatic encephalopathy. 2. Cirrhosis. 3. Chronic liver failure. 4. Chronic pain syndrome. He has been on long-term methadone. 5. Tobacco abuse. 6. Medical noncompliance. 7. Anemia. 8. Hepatitis C. PLAN: The overall plan of care is based on the preadmission screen, post-admission physician evaluation, and information garnered from therapy assessments. 1. Estimated length of stay is going to be probably at least 10-14 days and probably longer with his lower level. 2. Medical prognosis is reasonably good. 3. Anticipated interventions include the interdisciplinary acute inpatient rehabilitation program with PT, OT, and speech, and rehab nursing assisting regarding medication management, skin care prophylaxis, bowel and bladder issues, and nursing education. We will have the interdisciplinary acute inpatient rehabilitation team involved as well as the multiple wig sales consultant physicians. 4. Anticipated functional outcomes would be for the patient to become modified independent with transfers, mobility, and ADLs, and improved cognition, so that he can return back to the home setting. 5. Discharge destination would be back where he lives in a motel with his . He did have some assistance that came in through the state as well with the Whole Person. [facility] [address] [place] [address] REHAB UNIT PLAN OF CARE Name: ELANA LONDONWAYNE Room #: 511-P [facility] IN ..#: [id number] Admission: 02/25/18 Attend Phys: Tyler Duckworth MD Discharge: Date of : 53 Report #: [id number] 6. Expected therapy by discipline includes PT, OT, and speech 1 hour per day each 5 days a week throughout the duration of the acute inpatient rehabilitation stay. By: 0801 0919 Tyler Duckworth MD /nt
--- NOTE | ~2018-02-25 | HC ---
[facility] [place] [address] CONSULTATION Name: ELANA LONDON Room #: 511-P ADM IN M.R.#: [id number] Admission: 02/25/18 Attend Phys: Tyler Duckworth MD Discharge: Date of : 53 Report #: [id number] THIS REPORT FOR: //name// CC: Tyler Banerjee DATE OF SERVICE: 03/01/2018 NEUROBEHAVIORAL STATUS EXAMINATION ATTENDING PHYSICIAN: Tyler Duckworth MD INSPECTOR INSULATION: Guy Crane, PhD CLINICAL PRESENTATION: The patient is a 62-year-old male admitted to the rehabilitation unit at [facility] for comprehensive inpatient rehabilitation program to improve functional mobility, activities of daily living and self-care and mental status secondary to changes in function as a result of liver disease and cirrhosis. The patient is reported to have been noncompliant with medication in the home. He utilizes methadone for pain management. The patient has a past medical history that includes cirrhosis, hepatitis C virus with ascites in the past, hepatic encephalopathy and portal hypertension. His history includes total hip replacement, total knee replacement, shoulder surgeries and elbow surgery. A complete description of his medical condition and history can be found in his medical record. Neuropsychological consultation was requested to provide assistance in the assessment of cognitive and emotional status and to provide recommendations and services. Prior to this most recent admission, he was living with the assistance of his in their home. The patient reported having 5 children. He has been four times. He had completed the 10th grade and was able to acquire GED. He has been on disability for orthopedic/pain reasons. 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 He does not report a history of alcohol abuse. TECHNIQUES UTILIZED: Clinical interview, review of medical records, staff consultation and behavioral observation, mini mental status exam 2 standard version and clock drawing. EXAMINATION FINDINGS: The patient was alert and cooperative with the assessment. He accurately indicated having been confused and disoriented at the time of his admission. He does not indicate the reason for his confusion or disorientation. The patient feels like his mental status has returned to [address] [place] [address] CONSULTATION Name: LITAELANA MARTIN Room #: 511-P [facility] IN M.R.#: [id number] Admission: 02/25/18 Attend Phys: Tyler Duckworth MD Discharge: Date of : 51 Report #: [id number] normal. He does not report any current problems. There is no report of auditory or visual hallucinations. He does not present with an expressive or receptive aphasia. However, decreased verbal fluency and deficits in word finding are noted. He reports symptoms to include anxiety, decreased appetite. He does not report problems with depressed mood, memory, word finding, sleep, or illegal substance use. It should be noted that word finding deficits were noted throughout the assessment. His performance on the MMSE 2 brief version is extremely low with a raw score of 8/16. He was 3/3 for initial registration, 2/5 for orientation to time, 2/[address], and 0/3 for immediate recall of 3 items after a brief time delay and distraction. His performance on the MMSE 2 standard version was 15/30, which is severely impaired. He was 0/5 for serial 7's, 2/2 for naming, 1/1 for repetition. Auditory comprehension was 3/3. The patient was able to read and follow a single command. However, he required repetition in order to comprehend the specific command that he was to follow. The patient was unable to write a sentence and could not copy a simple geometric design. The patient was unable to draw a clock, place numbers or indicate appropriate time. Instead, he juan a wheel with spokes. He is presenting with severe deficits in neurocognitive functioning. Impairment is in the severe range for immediate recall, sustained concentration, visual spatial organization and executive functioning. The patient has decreased insight into the severity of his deficits. DIAGNOSTIC IMPRESSION: Major neurocognitive disorder (dementia), unspecified -- likely due to hepatic disease and medication with sedating features, with decreased insight -- extent to be determined (currently moderate to severe cognitive deficits) Unspecified anxiety disorder. RECOMMENDATIONS: The patient will require 24-hour care that includes assistance in the management of medication, nutrition and finances. His neurocognitive functioning is likely to improve along with his liver functioning. However, cognitive deficits will likely remain. His insight is poor, which places him at an increased safety risk. A 24-hour supervision in the home will be necessary for him to maintain safety. The use of written information along with increased time to process information will be necessary. The patient will require additional elaboration of instructions because of decreased auditory comprehension. [address] [address] CONSULTATION Name: ELANA LONDON Room #: 511-P [facility] IN M.R.#: [id number] Admission: 02/25/18 Attend Phys: Tyler Duckworth MD Discharge: Date of : 51 Report #: [id number] Thank you very much for allowing me to provide the consultation on this patient. <ELECTRONICALLY SIGNED> By: Guy Crane, PhD 03/02/18 1545 1443 1845 Guy Crane, PhD /nt
[2018-02-25] MEDS ORDERED: METHADONE10 MG/1 M1 PO (15:52)
[2018-02-25 17:10] VITALS: BP 103/75
[2018-02-25 19:15] VITALS: BP 99/53
[2018-02-26 07:11] VITALS: BP 123/69
[2018-02-26 07:41] LABS: HEMATOCRIT 41.8 % (42.0-52.0); HEMOGLOBIN 14.5 gm/dL (14.0-18.0); MCH 34.9 pg (26.0-34.0); MCHC 34.7 g/dL (28.0-37.0); MCV 100.6 fL (80.0-100.0); RBC 4.15 mil/uL (4.50-6.00); RDW 15.1 % (10.5-14.5); WBC 5.8 thou/uL (4.0-11.0)
[2018-02-26 08:01] LABS: ALBUMIN 2.7 g/dL (3.4-5.0); CREATININE 0.8 mg/dL (0.7-1.3); TOTAL BILIRUBIN 1.2 mg/dL (<0.1-1.0); TOTAL PROTEIN 7.5 g/dL (6.4-8.2)
[2018-02-26 08:02] LABS: POTASSIUM 4.6 mmol/L (3.5-5.1)
[2018-02-26 19:25] VITALS: BP 105/59
[2018-02-27 07:55] VITALS: BP 107/62
[2018-02-27 20:07] VITALS: BP 114/74
[2018-02-28 07:45] VITALS: BP 92/56
[2018-02-28 19:36] VITALS: BP 102/71
[2018-03-01 07:49] VITALS: BP 97/66
[2018-03-01 19:45] VITALS: BP 110/61
[2018-03-02 08:00] VITALS: BP 99/62
[2018-03-02 19:25] VITALS: BP 99/56
[2018-03-03 07:35] VITALS: BP 109/64
[2018-03-03 10:43] LABS: HEMATOCRIT 42.3 % (42.0-52.0); HEMOGLOBIN 14.7 gm/dL (14.0-18.0); MCH 35.1 pg (26.0-34.0); MCHC 34.7 g/dL (28.0-37.0); MCV 100.9 fL (80.0-100.0); RBC 4.19 mil/uL (4.50-6.00); RDW 15.2 % (10.5-14.5); WBC 5.1 thou/uL (4.0-11.0)
[2018-03-03 11:38] LABS: ALBUMIN 2.7 g/dL (3.4-5.0); CALCIUM 9.2 mg/dL (8.5-10.1); CREATININE 1.1 mg/dL (0.7-1.3); POTASSIUM 4.2 mmol/L (3.5-5.1); TOTAL BILIRUBIN 0.9 mg/dL (<0.1-1.0); TOTAL PROTEIN 7.7 g/dL (6.4-8.2)
[2018-03-03 19:23] VITALS: BP 97/64
[2018-03-04 08:00] VITALS: BP 106/67
[2018-03-04 19:40] VITALS: BP 100/60
[2018-03-05 08:30] VITALS: BP 99/68
[2018-03-05] MEDS ORDERED: CONSTULOSE10 GM/152 PO (10:01)
[2018-03-05] MEDS ORDERED: DOXYCYCLINE HYC50 MG PO ×2 (10:01→11:42)
[2018-03-05] MEDS ORDERED: ATENOLOL 50MG T50 M1 PO ×2 (10:01→11:42)
[2018-03-05 11:03] VITALS: BP 99/68
[2018-03-05 12:27] VITALS: BP 99/68
== END 2018-03-05 12:30 | disposition home health service (06) | DRG 442 ==
LOC: ENTRNSPT 03-05 12:10 → CMPTRNSPT 03-05 12:34
PROVIDERS: Nurse Practitioner; Nurse Practitioner Family
DX: K72.90 Hepatic failure, unspecified without coma (principal); E46 Unspecified protein-calorie malnutrition; I50.32 Chronic diastolic (congestive) heart failure; B19.20 Unspecified viral hepatitis C without hepatic coma; G89.4 Chronic pain syndrome; R53.81 Other malaise; J44.9 Chronic obstructive pulmonary disease, unspecified; D69.6 Thrombocytopenia, unspecified; F41.9 Anxiety disorder, unspecified; F17.210 Nicotine dependence, cigarettes, uncomplicated; Z96.643 Presence of artificial hip joint, bilateral; Z96.653 Presence of artificial knee joint, bilateral; F03.90 Unspecified dementia, unspecified severity, without behavioral disturbance, psychotic disturbance, mood disturbance, and anxiety; F11.10 Opioid abuse, uncomplicated; I95.9 Hypotension, unspecified; K04.7 Periapical abscess without sinus; K70.31 Alcoholic cirrhosis of liver with ascites; F10.10 Alcohol abuse, uncomplicated; D63.8 Anemia in other chronic diseases classified elsewhere; T23.012A Burn of unspecified degree of left thumb (nail), initial encounter; X08.8XXA Exposure to other specified smoke, fire and flames, initial encounter; Y93.89 Activity, other specified; Y92.89 Other specified places as the place of occurrence of the external cause; Y99.8 Other external cause status; Z68.38 Body mass index [BMI] 38.0-38.9, adult; Z91.14 Patient's other noncompliance with medication regimen; Z99.81 Dependence on supplemental oxygen; Z71.6 Tobacco abuse counseling; Z79.899 Other long term (current) drug therapy; Z23 Encounter for immunization
CPT/HCPCS: 10112

== ENCOUNTER 2018-05-22 19:16 | Emergency (ER) | payer OTHER ==
[~2018-05-22] VITALS: Ht 177.8 cm; Wt 111.1 kg
[~2018-05-22 19:16] MED LIST changes: +DOXYCYCLINE HYC50 MG PO; +METHADONE10 MG/1 M1 PO
[2018-05-22 19:27] LABS: URINE BILIRUBIN NEGATIVE (Negative); URINE BLOOD NEGATIVE (Negative); URINE CLARITY CLEAR; URINE COLOR YELLOW; URINE GLUCOSE-RANDOM* NEGATIVE (Negative); URINE KETONES NEGATIVE (Negative); URINE LEUKOCYTES-REFLEX NEGATIVE (Negative); URINE NITRITE-REFLEX NEGATIVE (Negative); URINE PROTEIN (DIPSTICK) NEGATIVE (Negative); URINE UROBILINOGEN 0.2 E.U./dl (0.2-1.0)
[2018-05-22 20:04] LABS: ABSOLUTE NEUTROPHILS 2.9 thou/uL (1.4-8.2); BASOPHILS 0.7 % (0.0-2.0); EOSINOPHILS 1.5 % (0.0-3.0); HEMATOCRIT 38.8 % (42.0-52.0); HEMOGLOBIN 13.3 gm/dL (14.0-18.0); LYMPHOCYTES 23.2 % (24.0-44.0); MCH 34.7 pg (26.0-34.0); MCHC 34.2 g/dL (28.0-37.0); MCV 101.4 fL (80.0-100.0); PLATELET COUNT 86 thou/uL (150-400); POLYS 64.6 % (36.0-66.0); RBC 3.83 mil/uL (4.50-6.00); RDW 13.7 % (10.5-14.5); WBC 4.5 thou/uL (4.0-11.0)
[2018-05-22 20:13] LABS: CALCIUM 9.4 mg/dL (8.5-10.1); POTASSIUM 3.9 mmol/L (3.5-5.1)
[2018-05-22 20:17] LABS: APTT 24.9 Seconds (24.5-32.8); INR 1.1
[2018-05-22 20:19] LABS: TOTAL BILIRUBIN 0.9 mg/dL (<0.1-1.0); TOTAL PROTEIN 7.8 g/dL (6.4-8.2)
[2018-05-22 20:23] LABS: PLATELET ESTIMATE DECREASED
[2018-05-22 21:11] VITALS: BP 116/70
--- NOTE | 2018-05-23 08:09 | EKG ---
[place] [address] [facility] [place] [address] ELECTROCARDIOGRAM REPORT Name: ELANA LONDON [facility] [id number] Admission: 05/22/18 Attend Phys: Discharge: 05/22/18 Date of : 51 Report #: [id number] THIS REPORT FOR: //name// [facility] ED Test Date: 2018-05-22 Test Time: 19:36:11 Pat Name: ELANA LONDON Department: Room: Gender: M Nurse Instructor: WG : 1955 Requested By: Nehemiah Smith Order Number: [id number] MD: Klever Rios Measurements Intervals [place] Rate: 74 P: -16 MD: 170 QRS: -4 QRSD: 108 T: 31 QT: 433 QTc: 481 Interpretive Statements Sinus rhythm Borderline prolonged QT interval Compared to ECG 02/03/2018 17:25:37 No significant changes Electronically Signed On 05-23-2018 8:09:16 CLERICAL ADMINISTRATIVE ASSISTANT by Klever Rios [email or web address] <ELECTRONICALLY SIGNED> By: Klever Rios MD, [facility] 05/23/18 0809 1936 35 Klever Rios MD, FACC /EPI
[2018-05-23] MEDS ORDERED: KEFLEX500 M1 PO (20:49)
== END 2018-05-22 21:26 | disposition home or self-care (01) ==
LOC: ER 19:16
PROVIDERS: Emergency Medicine
DX: L02.211 Cutaneous abscess of abdominal wall (principal); F17.210 Nicotine dependence, cigarettes, uncomplicated; J44.9 Chronic obstructive pulmonary disease, unspecified; I50.9 Heart failure, unspecified; M19.90 Unspecified osteoarthritis, unspecified site; M10.9 Gout, unspecified; F41.9 Anxiety disorder, unspecified; K74.60 Unspecified cirrhosis of liver

== ENCOUNTER 2018-05-23 19:25 | Emergency (ER) | payer OTHER ==
[~2018-05-23] VITALS: Ht 177.8 cm; Wt 106.6 kg
[2018-05-23] MEDS ORDERED: KEFLEX500 M1 PO (20:49)
[2018-05-23 21:45] VITALS: BP 132/80
== END 2018-05-23 21:47 | disposition home or self-care (01) ==
LOC: ER 19:25
DX: S50.01XA Contusion of right elbow, initial encounter (principal); T80.89XA Other complications following infusion, transfusion and therapeutic injection, initial encounter; F17.210 Nicotine dependence, cigarettes, uncomplicated; J44.9 Chronic obstructive pulmonary disease, unspecified; I50.9 Heart failure, unspecified; M10.9 Gout, unspecified; M19.90 Unspecified osteoarthritis, unspecified site; F41.9 Anxiety disorder, unspecified; K74.60 Unspecified cirrhosis of liver; X58.XXXA Exposure to other specified factors, initial encounter; Y92.89 Other specified places as the place of occurrence of the external cause; Y93.89 Activity, other specified; Y99.8 Other external cause status

== ENCOUNTER 2018-05-26 15:48 | Emergency (ER) | payer OTHER ==
[~2018-05-26] VITALS: Ht 180.3 cm; Wt 96.2 kg
[2018-05-26 18:02] VITALS: BP 109/68
== END 2018-05-26 17:35 | disposition home or self-care (01) ==
LOC: ER 15:48
DX: S30.0XXA Contusion of lower back and pelvis, initial encounter (principal); I50.9 Heart failure, unspecified; J44.9 Chronic obstructive pulmonary disease, unspecified; M10.9 Gout, unspecified; M19.90 Unspecified osteoarthritis, unspecified site; F41.9 Anxiety disorder, unspecified; F17.210 Nicotine dependence, cigarettes, uncomplicated; W19.XXXA Unspecified fall, initial encounter; Y93.89 Activity, other specified; Y92.89 Other specified places as the place of occurrence of the external cause; Y99.8 Other external cause status

== ENCOUNTER 2018-06-07 18:34 | Emergency (ER) | payer OTHER ==
[~2018-06-07] VITALS: Ht 182.9 cm; Wt 108.9 kg
[2018-06-07] MEDS ORDERED: TRAZODONE HCL100 MG PO (19:48)
[2018-06-07] MEDS ORDERED: ZOFRAN ODT4 MG DISSOLVE (19:48)
[2018-06-07 20:25] VITALS: BP 95/63
== END 2018-06-07 20:25 | disposition home or self-care (01) ==
LOC: ER 18:34
DX: G47.00 Insomnia, unspecified (principal); K74.60 Unspecified cirrhosis of liver; J44.9 Chronic obstructive pulmonary disease, unspecified; R11.0 Nausea; Z99.81 Dependence on supplemental oxygen; I50.9 Heart failure, unspecified; M10.9 Gout, unspecified; M19.90 Unspecified osteoarthritis, unspecified site; F41.9 Anxiety disorder, unspecified; F17.210 Nicotine dependence, cigarettes, uncomplicated

== ENCOUNTER 2018-06-13 11:54 | Emergency (ER) | payer OTHER ==
[~2018-06-13] VITALS: Ht 182.9 cm; Wt 108.9 kg
[~2018-06-13 11:54] MED LIST changes: +ZOFRAN ODT4 MG DISSOLVE
[2018-06-13 12:21] LABS: URINE BILIRUBIN NEGATIVE (Negative); URINE BLOOD NEGATIVE (Negative); URINE CLARITY CLEAR; URINE COLOR YELLOW; URINE GLUCOSE-RANDOM* NEGATIVE (Negative); URINE KETONES NEGATIVE (Negative); URINE LEUKOCYTES-REFLEX NEGATIVE (Negative); URINE NITRITE-REFLEX NEGATIVE (Negative); URINE PROTEIN (DIPSTICK) NEGATIVE (Negative); URINE UROBILINOGEN 0.2 E.U./dl (0.2-1.0)
[2018-06-13 13:38] LABS: ABSOLUTE NEUTROPHILS 4.9 thou/uL (1.4-8.2); BASOPHILS 0.8 % (0.0-2.0); HEMATOCRIT 42.1 % (42.0-52.0); HEMOGLOBIN 14.3 gm/dL (14.0-18.0); LYMPHOCYTES 18.3 % (24.0-44.0); MCH 34.8 pg (26.0-34.0); MCHC 33.9 g/dL (28.0-37.0); MCV 102.7 fL (80.0-100.0); MONOCYTES 6.3 % (1.0-8.0); PLATELET COUNT 97 thou/uL (150-400); POLYS 73.6 % (36.0-66.0); RDW 14.6 % (10.5-14.5); WBC 6.6 thou/uL (4.0-11.0)
[2018-06-13 13:45] LABS: CALCIUM 9.3 mg/dL (8.5-10.1); CREATININE 0.9 mg/dL (0.7-1.3)
[2018-06-13 13:51] LABS: ALBUMIN 3.5 g/dL (3.4-5.0); TOTAL BILIRUBIN 1.5 mg/dL (<0.1-1.0); TOTAL PROTEIN 8.6 g/dL (6.4-8.2)
[2018-06-13] MEDS ORDERED: TRAZODONE 150150 M1 PO (14:06)
[2018-06-13 14:14] VITALS: BP 100/68
== END 2018-06-13 14:19 | disposition home or self-care (01) ==
LOC: ER 11:54
PROVIDERS: Physician Assistant
DX: M54.5 Low back pain (principal); R10.84 Generalized abdominal pain; Z76.0 Encounter for issue of repeat prescription; F17.210 Nicotine dependence, cigarettes, uncomplicated; J44.9 Chronic obstructive pulmonary disease, unspecified; I50.9 Heart failure, unspecified; M10.9 Gout, unspecified; M19.90 Unspecified osteoarthritis, unspecified site; F41.9 Anxiety disorder, unspecified; K74.60 Unspecified cirrhosis of liver; W18.2XXA Fall in (into) shower or empty bathtub, initial encounter; Y92.89 Other specified places as the place of occurrence of the external cause; Y93.E1 Activity, personal bathing and showering; Y99.8 Other external cause status

== ENCOUNTER 2018-06-23 19:04 | Emergency (ER) | payer OTHER ==
[~2018-06-23] VITALS: Ht 180.3 cm; Wt 104.3 kg
[2018-06-23 22:59] VITALS: BP 156/75
== END 2018-06-23 22:55 | disposition home or self-care (01) ==
LOC: ER 19:04
DX: G89.29 Other chronic pain (principal); M54.5 Low back pain; J44.9 Chronic obstructive pulmonary disease, unspecified; I50.9 Heart failure, unspecified; M10.9 Gout, unspecified; M19.90 Unspecified osteoarthritis, unspecified site; F41.9 Anxiety disorder, unspecified; K74.60 Unspecified cirrhosis of liver; F17.210 Nicotine dependence, cigarettes, uncomplicated; Z86.19 Personal history of other infectious and parasitic diseases

== ENCOUNTER 2018-07-17 13:12 | Emergency (ER) | payer OTHER ==
[~2018-07-17] VITALS: Ht 182.9 cm; Wt 93.0 kg
[2018-07-17 13:13] VITALS: BP 126/88
[2018-07-17] MEDS ORDERED: NICOTINE1 EAC1 TOP (13:21)
[2018-07-17] MEDS ORDERED: OMEPRAZOLE 20 M20 M1 PO (13:21)
[2018-07-17] MEDS ORDERED: EPCLUSA 400 MG1 EACH PO (13:22)
[2018-07-17] MEDS ORDERED: ASPIRIN81 M2 PO (13:22)
[2018-07-17 13:24] LABS: URINE BILIRUBIN NEGATIVE (Negative); URINE BLOOD NEGATIVE (Negative); URINE CLARITY CLEAR; URINE COLOR YELLOW; URINE GLUCOSE-RANDOM* NEGATIVE (Negative); URINE KETONES NEGATIVE (Negative); URINE LEUKOCYTES-REFLEX NEGATIVE (Negative); URINE NITRITE-REFLEX NEGATIVE (Negative); URINE PROTEIN (DIPSTICK) NEGATIVE (Negative); URINE SPECIFIC GRAVITY 1.015 (1.005-1.035); URINE UROBILINOGEN 0.2 E.U./dl (0.2-1.0)
[2018-07-17 14:39] LABS: ABSOLUTE NEUTROPHILS 3.2 thou/uL (1.4-8.2); BASOPHILS 0.8 % (0.0-2.0); EOSINOPHILS 1.9 % (0.0-3.0); HEMATOCRIT 39.1 % (42.0-52.0); HEMOGLOBIN 13.5 gm/dL (14.0-18.0); LYMPHOCYTES 21.7 % (24.0-44.0); MCH 34.7 pg (26.0-34.0); MCHC 34.5 g/dL (28.0-37.0); MCV 100.8 fL (80.0-100.0); MONOCYTES 8.3 % (1.0-8.0); PLATELET COUNT 110 thou/uL (150-400); POLYS 67.3 % (36.0-66.0); RBC 3.88 mil/uL (4.50-6.00); RDW 13.9 % (10.5-14.5); WBC 4.8 thou/uL (4.0-11.0)
[2018-07-17 14:53] LABS: ANION GAP 7 mmol/L (7-16); BUN 13 mg/dL (7-18); CALCIUM 9.7 mg/dL (8.5-10.1); CHLORIDE 101 mmol/L (98-107); CO2 31 mmol/L (21-32); CREATININE 0.9 mg/dL (0.7-1.3); GLUCOSE 181 mg/dL (74-106); POTASSIUM 3.6 mmol/L (3.5-5.1); SODIUM 139 mmol/L (136-145)
[2018-07-17 15:00] LABS: ALBUMIN 3.5 g/dL (3.4-5.0); LIPASE 120 U/L (73-393); SGOT 21 U/L (15-37); SGPT 21 U/L (30-65); TOTAL BILIRUBIN 0.8 mg/dL (<0.1-1.0); TOTAL PROTEIN 8.3 g/dL (6.4-8.2); TROPONIN-I <0.06 ng/mL (<0.06)
--- NOTE | 2018-07-18 15:16 | EKG ---
[address] [place] [address] ELECTROCARDIOGRAM REPORT Name: ELANA LONDON [facility] [id number] ������������������ Admission: 07/17/18 ������������������ Attend Phys: Discharge: 07/17/18 ������������������ Date of : 51 Report #: [id number] ����������������������������������������������������������������� [id number] THIS REPORT FOR: //name// [facility] ED Test Date: 2018-07-17 Test Time: 13:32:51 Pat Name: ELANA LONDON Department: Room: Gender: M Community Sports Coordinator: WG : 1955 Requested By: Carmen Vásquez Order Number: [id number] MD: Jero Carmen Measurements Intervals [place] Rate: 111 P: 21 CO: 166 QRS: -17 QRSD: 101 T: 24 QT: 354 QTc: 481 Interpretive Statements Sinus tachycardia left atrial enlargement Low voltage, precordial leads Left ventricular hypertrophy Baseline wander in lead(s) V1 Compared to ECG 05/22/2018 19:36:11 Low QRS voltage now present Left ventricular hypertrophy now present Electronically Signed On 07-18-2018 15:16:07 CDT by Jero Carmen [email or web address] ��������������������������������������������� <ELECTRONICALLY SIGNED> ���������������������������������������� By: Jero Carmen MD ��������������������������������������������� 07/18/18 1516 1332 1332 Jero Carmen MD /EPI
== END 2018-07-17 15:00 | disposition left against medical advice (07) ==
LOC: ER 13:12
PROVIDERS: Physician Assistant
DX: R10.84 Generalized abdominal pain (principal); R00.0 Tachycardia, unspecified; F17.210 Nicotine dependence, cigarettes, uncomplicated; J44.9 Chronic obstructive pulmonary disease, unspecified; I50.9 Heart failure, unspecified; M10.9 Gout, unspecified; M19.90 Unspecified osteoarthritis, unspecified site; F41.9 Anxiety disorder, unspecified; K74.60 Unspecified cirrhosis of liver

== ENCOUNTER 2018-08-12 23:43 | Emergency (ER) | payer OTHER ==
[~2018-08-12] VITALS: Ht 182.9 cm; Wt 90.7 kg
[~2018-08-12 23:43] MED LIST changes: +ASPIRIN81 M2 PO; +EPCLUSA 400 MG1 EACH PO; +NICOTINE1 EAC1 TOP; +OMEPRAZOLE 20 M20 M1 PO
[2018-08-13 00:38] LABS: URINE BILIRUBIN NEGATIVE (Negative); URINE BLOOD NEGATIVE (Negative); URINE CLARITY CLEAR; URINE COLOR YELLOW; URINE GLUCOSE-RANDOM* NEGATIVE (Negative); URINE KETONES NEGATIVE (Negative); URINE LEUKOCYTES-REFLEX NEGATIVE (Negative); URINE NITRITE-REFLEX NEGATIVE (Negative); URINE PROTEIN (DIPSTICK) NEGATIVE (Negative); URINE SPECIFIC GRAVITY <= 1.005 (1.005-1.035); URINE UROBILINOGEN 0.2 E.U./dl (0.2-1.0)
[2018-08-13 00:43] LABS: AMP/METHAMP Negative (Negative); BARBITURATES Negative (Negative); BENZODIAZEPINES Negative (Negative); COCAINE Negative (Negative); METHADONE POSITIVE (Negative); OPIATES Negative (Negative); PCP Negative (Negative)
[2018-08-13 01:00] VITALS: BP 97/76
== END 2018-08-13 01:00 | disposition home or self-care (01) ==
LOC: ER 23:43
PROVIDERS: Emergency Medicine
DX: G89.29 Other chronic pain (principal); R10.84 Generalized abdominal pain; M79.671 Pain in right foot; R60.0 Localized edema; J44.9 Chronic obstructive pulmonary disease, unspecified; I50.9 Heart failure, unspecified; M19.90 Unspecified osteoarthritis, unspecified site; F41.9 Anxiety disorder, unspecified; M10.9 Gout, unspecified; K74.60 Unspecified cirrhosis of liver; F17.210 Nicotine dependence, cigarettes, uncomplicated; Z79.899 Other long term (current) drug therapy; Z86.19 Personal history of other infectious and parasitic diseases

== ENCOUNTER 2018-08-24 21:17 | Emergency (ER) | payer OTHER ==
[~2018-08-24] VITALS: Ht 182.9 cm; Wt 90.7 kg
[2018-08-24 22:31] LABS: CALCIUM 9.5 mg/dL (8.5-10.1); CREATININE 0.9 mg/dL (0.7-1.3); POTASSIUM 3.7 mmol/L (3.5-5.1)
[2018-08-24 22:35] LABS: BASOPHILS 0.5 % (0.0-2.0); EOSINOPHILS 0.9 % (0.0-3.0); HEMOGLOBIN 13.6 gm/dL (14.0-18.0); LYMPHOCYTES 9.2 % (24.0-44.0); MCH 33.4 pg (26.0-34.0); MCHC 33.9 g/dL (28.0-37.0); MCV 98.3 fL (80.0-100.0); MONOCYTES 5.2 % (1.0-8.0); PLATELET COUNT 108 thou/uL (150-400); POLYS 84.2 % (36.0-66.0); RBC 4.07 mil/uL (4.50-6.00); RDW 13.5 % (10.5-14.5); WBC 7.1 thou/uL (4.0-11.0)
[2018-08-24 22:37] LABS: ALBUMIN 3.5 g/dL (3.4-5.0); TOTAL BILIRUBIN 0.8 mg/dL (<0.1-1.0); TOTAL PROTEIN 7.8 g/dL (6.4-8.2)
[2018-08-24 22:38] LABS: MAGNESIUM 1.8 mg/dL (1.8-2.4); TROPONIN-I <0.06 ng/mL (<0.06)
[2018-08-25 00:30] VITALS: BP 124/68
[2018-08-25] MEDS ORDERED: TRAZODONE 150150 M1 PO (00:39)
== END 2018-08-25 00:30 | disposition home or self-care (01) ==
LOC: ER 21:17
PROVIDERS: Emergency Medicine; Nurse Practitioner Family
DX: E87.1 Hypo-osmolality and hyponatremia (principal); T50.995A Adverse effect of other drugs, medicaments and biological substances, initial encounter; R00.0 Tachycardia, unspecified; R41.82 Altered mental status, unspecified; F11.20 Opioid dependence, uncomplicated; J44.9 Chronic obstructive pulmonary disease, unspecified; I50.9 Heart failure, unspecified; M10.9 Gout, unspecified; M19.90 Unspecified osteoarthritis, unspecified site; F41.9 Anxiety disorder, unspecified; K74.60 Unspecified cirrhosis of liver; Z87.891 Personal history of nicotine dependence; Y92.89 Other specified places as the place of occurrence of the external cause

== ENCOUNTER 2018-12-12 13:33 | Emergency (ER) | payer OTHER ==
[~2018-12-12] VITALS: Ht 177.8 cm; Wt 117.9 kg
[2018-12-12 13:34] VITALS: BP 118/71
[2018-12-12 15:22] LABS: ABSOLUTE NEUTROPHILS 4.4 thou/uL (1.4-8.2); BASOPHILS 0.4 % (0.0-2.0); EOSINOPHILS 1.1 % (0.0-3.0); HEMATOCRIT 46.7 % (42.0-52.0); HEMOGLOBIN 16.1 gm/dL (14.0-18.0); LYMPHOCYTES 21.9 % (24.0-44.0); MCH 32.6 pg (26.0-34.0); MCHC 34.5 g/dL (28.0-37.0); MCV 94.4 fL (80.0-100.0); MONOCYTES 9.3 % (1.0-8.0); PLATELET COUNT 108 thou/uL (150-400); POLYS 67.3 % (36.0-66.0); RBC 4.95 mil/uL (4.50-6.00); RDW 15.9 % (10.5-14.5); WBC 6.5 thou/uL (4.0-11.0)
[2018-12-12 15:31] LABS: ANION GAP 6 mmol/L (7-16); BUN 27 mg/dL (7-18); CALCIUM 10.2 mg/dL (8.5-10.1); CHLORIDE 94 mmol/L (98-107); CO2 36 mmol/L (21-32); GLUCOSE 117 mg/dL (74-106); POTASSIUM 3.2 mmol/L (3.5-5.1); SODIUM 136 mmol/L (136-145)
[2018-12-12 15:40] LABS: ALBUMIN 4.1 g/dL (3.4-5.0); SGOT 18 U/L (15-37); SGPT 15 U/L (30-65); TOTAL BILIRUBIN 1.4 mg/dL (<0.1-1.0); TROPONIN-I <0.06 ng/mL (<0.06)
[2018-12-12] MEDS ORDERED: PREDNISONE 20 M20 MG PO (16:14)
[2018-12-12] MEDS ORDERED: DOXYCYCLINE 10100 MG PO (16:14)
--- NOTE | 2018-12-16 07:41 | EKG ---
[address] [address] ELECTROCARDIOGRAM REPORT Name: ELANA LONDON [facility] [id number] Admission: 12/12/18 Attend Phys: Discharge: 12/12/18 Date of : 51 Report #: [id number] THIS REPORT FOR: //name// [facility] ED Test Date: 2018-12-12 Test Time: 13:40:05 Pat Name: ELANA LONDON Department: Room: Gender: M Freelance Copywriter: SAVAGE : 1955 Requested By: Amairani Montelongo Order Number: [id number] MD: Klever Rios Measurements Intervals [place] Rate: 103 P: 26 W[place]: 170 QRS: -1 QRSD: 102 T: 29 QT: 387 QTc: 507 Interpretive Statements Sinus tachycardia Prolonged QT interval Compared to ECG 07/17/2018 13:32:51 Prolonged QT interval now present Electronically Signed On 12-16-2018 7:41:11 CDT by Klever Rios [email or web address] <ELECTRONICALLY SIGNED> By: Klever Rios MD, [facility] 12/16/18 0741 1340 1340 Klever Rios MD, FAC /EPI
== END 2018-12-12 18:23 | disposition home or self-care (01) ==
LOC: ER 13:33
PROVIDERS: Nurse Practitioner Family
DX: J44.1 Chronic obstructive pulmonary disease with (acute) exacerbation (principal); I50.9 Heart failure, unspecified; M10.9 Gout, unspecified; F41.9 Anxiety disorder, unspecified; F11.20 Opioid dependence, uncomplicated; K74.60 Unspecified cirrhosis of liver; Z87.891 Personal history of nicotine dependence

== ENCOUNTER 2019-01-19 14:16 | Emergency (ER) | payer OTHER ==
[~2019-01-19] VITALS: Ht 177.8 cm; Wt 95.3 kg
[~2019-01-19 14:16] MED LIST changes: +DOXYCYCLINE 10100 MG PO; +PREDNISONE 20 M20 MG PO
[2019-01-19 14:17] VITALS: BP 117/73
[2019-01-19] MEDS ORDERED: ULTRAM 50MG TAB50 MG PO (15:17)
[2019-01-19] MEDS ORDERED: AUGMENTIN 875-1 EACH PO (15:17)
== END 2019-01-19 15:53 | disposition home or self-care (01) ==
LOC: ER 14:16
DX: K05.10 Chronic gingivitis, plaque induced (principal); J44.9 Chronic obstructive pulmonary disease, unspecified; I50.9 Heart failure, unspecified; K74.60 Unspecified cirrhosis of liver; M10.9 Gout, unspecified; M19.90 Unspecified osteoarthritis, unspecified site; F41.9 Anxiety disorder, unspecified; Z87.891 Personal history of nicotine dependence

== ENCOUNTER 2019-04-25 14:58 | Emergency (ER) | payer OTHER ==
[~2019-04-25] VITALS: Ht 180.3 cm; Wt 95.3 kg
[~2019-04-25 14:58] MED LIST changes: +AUGMENTIN 875-1 EACH PO
[2019-04-25] MEDS ORDERED: PROAIR HFA8.5 GM INH (15:10)
[2019-04-25] MEDS ORDERED: SPIRONOLACTONE100 M1 GT (15:14)
[2019-04-25] MEDS ORDERED: DESYREL150 MG PO (15:14)
[2019-04-25] MEDS ORDERED: NAPROXEN375 MG PO (16:49)
[2019-04-25] MEDS ORDERED: TRAMADOL 50 MG50 MG PO (16:49)
[2019-04-25] MEDS ORDERED: TRAZODONE HCL100 MG PO (16:58)
[2019-04-25 17:44] VITALS: BP 117/72
== END 2019-04-25 17:20 | disposition home or self-care (01) ==
LOC: ER 14:58
DX: S70.01XA Contusion of right hip, initial encounter (principal); M79.89 Other specified soft tissue disorders; I50.9 Heart failure, unspecified; E66.9 Obesity, unspecified; J44.9 Chronic obstructive pulmonary disease, unspecified; K74.60 Unspecified cirrhosis of liver; M10.9 Gout, unspecified; F41.9 Anxiety disorder, unspecified; Z68.29 Body mass index [BMI] 29.0-29.9, adult; Z87.891 Personal history of nicotine dependence; W01.0XXA Fall on same level from slipping, tripping and stumbling without subsequent striking against object, initial encounter; Y93.89 Activity, other specified; Y92.89 Other specified places as the place of occurrence of the external cause; Y99.8 Other external cause status

== ENCOUNTER 2019-05-20 17:36 | Emergency (ER) | payer OTHER ==
[~2019-05-20] VITALS: Ht 180.3 cm; Wt 95.3 kg
[~2019-05-20 17:36] MED LIST changes: +DESYREL150 MG PO; +NAPROXEN375 MG PO; +PROAIR HFA8.5 GM INH; +SPIRONOLACTONE100 M1 GT
[2019-05-20 18:26] LABS: URINE BILIRUBIN NEGATIVE (Negative); URINE BLOOD NEGATIVE (Negative); URINE CLARITY CLEAR; URINE COLOR YELLOW; URINE GLUCOSE-RANDOM* NEGATIVE (Negative); URINE KETONES NEGATIVE (Negative); URINE LEUKOCYTES-REFLEX NEGATIVE (Negative); URINE NITRITE-REFLEX NEGATIVE (Negative); URINE PROTEIN (DIPSTICK) NEGATIVE (Negative)
[2019-05-20 18:39] LABS: ABSOLUTE NEUTROPHILS 3.7 thou/uL (1.4-8.2); BASOPHILS 0.4 % (0.0-2.0); EOSINOPHILS 2.3 % (0.0-3.0); HEMATOCRIT 42.7 % (42.0-52.0); HEMOGLOBIN 14.3 gm/dL (14.0-18.0); MCH 33.1 pg (26.0-34.0); MCHC 33.5 g/dL (28.0-37.0); MCV 98.9 fL (80.0-100.0); MONOCYTES 7.5 % (1.0-8.0); POLYS 64.8 % (36.0-66.0); RBC 4.32 mil/uL (4.50-6.00); RDW 14.5 % (10.5-14.5); WBC 5.8 thou/uL (4.0-11.0)
[2019-05-20 18:44] LABS: CALCIUM 8.9 mg/dL (8.5-10.1); CREATININE 0.7 mg/dL (0.7-1.3); POTASSIUM 3.4 mmol/L (3.5-5.1)
[2019-05-20 18:51] LABS: ALBUMIN 3.7 g/dL (3.4-5.0); TOTAL BILIRUBIN 0.5 mg/dL (<0.1-1.0); TOTAL PROTEIN 7.9 g/dL (6.4-8.2)
[2019-05-20 18:54] LABS: AMP/METHAMP Negative (Negative); BARBITURATES Negative (Negative); BENZODIAZEPINES Negative (Negative); COCAINE Negative (Negative); METHADONE POSITIVE (Negative); OPIATES Negative (Negative); PCP Negative (Negative)
[2019-05-20 19:47] LABS: PLATELET COUNT 99 thou/uL (150-400)
[2019-05-20 21:15] VITALS: BP 123/83
== END 2019-05-20 21:16 | disposition home or self-care (01) ==
LOC: ER 17:36
PROVIDERS: Emergency Medicine
DX: R10.11 Right upper quadrant pain (principal); K59.00 Constipation, unspecified; M79.10 Myalgia, unspecified site; I50.9 Heart failure, unspecified; M10.9 Gout, unspecified; M19.90 Unspecified osteoarthritis, unspecified site; J44.9 Chronic obstructive pulmonary disease, unspecified; F41.9 Anxiety disorder, unspecified; Z87.891 Personal history of nicotine dependence; Z79.899 Other long term (current) drug therapy

== ENCOUNTER 2019-07-09 15:52 | Emergency (ER) | payer OTHER ==
[~2019-07-09] VITALS: Ht 180.3 cm; Wt 95.3 kg
[2019-07-09 17:37] LABS: ANION GAP 6 mmol/L (7-16); BUN 19 mg/dL (7-18); CALCIUM 10.1 mg/dL (8.5-10.1); CHLORIDE 101 mmol/L (98-107); CO2 32 mmol/L (21-32); CREATININE 0.9 mg/dL (0.7-1.3); GLUCOSE 89 mg/dL (74-106); POTASSIUM 3.9 mmol/L (3.5-5.1); SODIUM 139 mmol/L (136-145)
[2019-07-09 17:42] LABS: ALBUMIN 4.2 g/dL (3.4-5.0); SGOT 19 U/L (15-37); SGPT 14 U/L (30-65); TOTAL BILIRUBIN 0.9 mg/dL (<0.1-1.0); TOTAL PROTEIN 8.2 g/dL (6.4-8.2); TROPONIN-I <0.06 ng/mL (<0.06)
[2019-07-09 17:45] LABS: ABSOLUTE NEUTROPHILS 5.4 thou/uL (1.4-8.2); BASOPHILS 0.7 % (0.0-2.0); HEMATOCRIT 43.2 % (42.0-52.0); HEMOGLOBIN 14.7 gm/dL (14.0-18.0); LYMPHOCYTES 15.4 % (24.0-44.0); MCH 33.7 pg (26.0-34.0); MCHC 34.1 g/dL (28.0-37.0); MCV 98.9 fL (80.0-100.0); MONOCYTES 6.3 % (1.0-8.0); PLATELET COUNT 100 thou/uL (150-400); POLYS 76.6 % (36.0-66.0); RBC 4.37 mil/uL (4.50-6.00); RDW 13.9 % (10.5-14.5); WBC 7.9 thou/uL (4.0-11.0)
[2019-07-09] MEDS ORDERED: PREDNISONE 20 M20 MG PO (20:31)
[2019-07-09 20:53] VITALS: BP 127/99
== END 2019-07-09 20:50 | disposition home or self-care (01) ==
LOC: ER 15:52
PROVIDERS: Physician Assistant
DX: B34.9 Viral infection, unspecified (principal); J44.9 Chronic obstructive pulmonary disease, unspecified; M10.9 Gout, unspecified; F41.9 Anxiety disorder, unspecified; F17.210 Nicotine dependence, cigarettes, uncomplicated

== ENCOUNTER 2019-12-15 01:38 | Emergency (ER) | payer OTHER ==
[~2019-12-15] VITALS: Ht 182.9 cm; Wt 90.7 kg
[2019-12-15 02:35] LABS: URINE BILIRUBIN NEGATIVE (Negative); URINE BLOOD NEGATIVE (Negative); URINE CLARITY CLEAR; URINE COLOR YELLOW; URINE GLUCOSE-RANDOM* NEGATIVE (Negative); URINE KETONES NEGATIVE (Negative); URINE LEUKOCYTES-REFLEX NEGATIVE (Negative); URINE NITRITE-REFLEX NEGATIVE (Negative); URINE PROTEIN (DIPSTICK) NEGATIVE (Negative); URINE SPECIFIC GRAVITY >= 1.030 (1.005-1.035)
[2019-12-15 03:30] LABS: ABSOLUTE NEUTROPHILS 4.6 thou/uL (1.4-8.2); BASOPHILS 0.4 % (0.0-2.0); EOSINOPHILS 1.3 % (0.0-3.0); HEMOGLOBIN 13.8 gm/dL (14.0-18.0); LYMPHOCYTES 14.4 % (24.0-44.0); MCH 31.8 pg (26.0-34.0); MCHC 33.6 g/dL (28.0-37.0); MCV 94.8 fL (80.0-100.0); MONOCYTES 10.8 % (1.0-8.0); PLATELET COUNT 102 thou/uL (150-400); POLYS 73.1 % (36.0-66.0); RBC 4.32 mil/uL (4.50-6.00); WBC 6.3 thou/uL (4.0-11.0)
[2019-12-15 03:46] LABS: CALCIUM 8.8 mg/dL (8.5-10.1); CREATININE 0.7 mg/dL (0.7-1.3); POTASSIUM 3.8 mmol/L (3.5-5.1)
[2019-12-15] MEDS ORDERED: VIBRAMYCIN 100100 MG PO (05:31)
[2019-12-15 06:30] VITALS: BP 124/76
== END 2019-12-15 06:32 | disposition home or self-care (01) ==
LOC: ER 01:38
PROVIDERS: Emergency Medicine
DX: J18.1 Lobar pneumonia, unspecified organism (principal); J44.9 Chronic obstructive pulmonary disease, unspecified; F17.210 Nicotine dependence, cigarettes, uncomplicated; M10.9 Gout, unspecified; Z20.828 Contact with and (suspected) exposure to other viral communicable diseases; Z79.82 Long term (current) use of aspirin; Z79.899 Other long term (current) drug therapy

== ENCOUNTER → 2020-05-24 | Outpatient (CLI) | payer OTHER ==
[~2020-05-24] MED LIST changes: +VIBRAMYCIN 100100 MG PO
== END ==
LOC: RAD 10:31
PROVIDERS: ATTEND Neuromusculoskeletal Medicine & OMM
DX: M17.12 Unilateral primary osteoarthritis, left knee (principal); M25.762 Osteophyte, left knee